=== PATIENT | female | born 1955 | race Caucasian/White ===

== ENCOUNTER → 2016-09-19 | Outpatient (CLI) | payer OTHER ==
--- NOTE | 2016-09-19 14:39 | MM ---
Reason for exam: clinical finding. History: Patient is postmenopausal. Family history of breast cancer in paternal aunt at age 60, breast cancer in paternal cousin at age 53, breast cancer in paternal cousin at age 68, and breast cancer in paternal cousin at age 65. Benign excisional biopsy of the right breast, 1994. Benign excisional biopsy of the left breast. Took estrogen beginning at age 43. Took progesterone beginning at age 43. Physical Findings: Nurse Summary: 1.5cm, 1cm nodule in the left breast at 9:30 and 5 o'clock (nurse dw). MG 3D Diag Mammo W/Cad SERGIO Bilateral CC and MLO view(s) were taken. The breast tissue is heterogeneously dense. This may lower the sensitivity of mammography. No suspicious calcifications are seen. Spiculated mass in the left breast at 8 o'clock, mass is 1cm. These results were verbally communicated with the patient and result sheet given to the patient on 09/19/16. ASSESSMENT: Incomplete: need additional imaging evaluation, BI-RAD 0 RECOMMENDATION: Ultrasound of the left breast.
--- NOTE | 2016-09-19 14:42 | USB ---
Reason for exam: additional evaluation requested from abnormal screening. History: Patient is postmenopausal. Family history of breast cancer in paternal aunt at age 60, breast cancer in paternal cousin at age 53, breast cancer in paternal cousin at age 68, and breast cancer in paternal cousin at age 65. Benign excisional biopsy of the right breast, 1994. Benign excisional biopsy of the left breast. Took estrogen beginning at age 43. Took progesterone beginning at age 43. US Breast Limited LT Left breast ultrasound demonstrates a 0.2 x 0.3 x 0.2cm oval lesion too small to characterize at 5 o'clock and a 1.1 x 1.0 x 0.7cm irregular, solid, hypoechoic lesion at 8 o'clock. These results were verbally communicated with the patient and result sheet given to the patient on 09/19/16. ASSESSMENT: Highly suggestive of malignancy, BI-RAD 5 RECOMMENDATION: Ultrasound core biopsy. Called Dr. Hunter with mammographic findings and has scheduled an appointment for the patient for 10/18/16 at 9:[address] Cox. Biopsy scheduled for 10/12/16. PRELIMINARY REPORT CALLED AND FAXED TO DR. COX ON 09/19/16 AT 300/TP.
== END | disposition home or self-care (01) ==
LOC: RADMAMWWP 12:55
PROVIDERS: ATTEND Family Medicine
DX: N64.59 Other signs and symptoms in breast (principal)
CPT/HCPCS: 76642; G0204; G0279

== ENCOUNTER → 2016-09-21 | Day surgery (SDC) | payer OTHER ==
[~2016-09-21] MED LIST: ALPRAZolam 0.25 MG TAB ONE; BACITRACIN OINT 1 EACH PACKET TOPICAL ONE; LIDOCAINE 1% INJ 10MG/ML (20 ML MDV) ONE; LIDOCAINE 1%-EPI 1:100,000 20 ML VIAL ONE; SODIUM BICARB 4% 5 ML VIAL (0.48 MEQ/ML) ONE
--- NOTE | 2016-09-26 10:21 | USB ---
EXAMINATION TYPE: US biopsy breast VAD LT DATE OF EXAM: 09/21/2016 9:33 AM CLINICAL HISTORY: R92.8 abnormal mammo. TECHNIQUE: Ultrasound guided core biopsy of left breast. COMPARISON: Ultrasound 09/19/2016 FINDINGS: The procedure of ultrasound guided core biopsy was explained to the patient. Benefits, alternatives, and risks were discussed. An informed consent was then obtained. The patient was placed in supine positioning for imaging and for the procedure. The overlying skin was prepped and draped in usual sterile fashion. Lidocaine buffered with bicarbonate was used as anesthetic into the skin and subcutaneous tissue up to area of concern in the left breast. A elisabeth was made with surgical scalpel. On placing the needle there was some continued discomfort, the needle was withdrawn and additional lidocaine was placed. Upon reinsertion patient tolerated procedure well. Under ultrasound guidance, a mammotome 12-gauge vacuum assisted biopsy gun device was used to obtain 5 core samples. Following this, a biopsy clip was left in lesion. The patient tolerated the procedure well without any immediate complication. The patient was kept in the radiology department for short stay after the procedure and then discharged home in stable condition. Post procedure mammogram was ordered. The clip appears to be in appropriate position. IMPRESSION: Successful, uncomplicated ultrasound guided core biopsy of area of concern in the left breast, full pathology results to follow. Pathology Results: Malignant BREAST, LEFT, ULTRASOUND GUIDED CORE BIOPSY: INVASIVE AND IN SITU CARCINOMA; PENDING IMMUNOHISTOCHEMICAL STAINS. 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 Recommendation Surgical consult of the left breast. DAGMAR
--- NOTE | 2016-09-26 10:32 | MM ---
Reason for exam: additional evaluation requested from abnormal screening. Last mammogram was performed less than 1 month ago. History: Patient is postmenopausal. Family history of breast cancer in paternal aunt at age 60, breast cancer in paternal cousin at age 53, breast cancer in paternal cousin at age 68, and breast cancer in paternal cousin at age 65. Benign excisional biopsy of the right breast, 1994. Benign excisional biopsy of the left breast. Took estrogen beginning at age 43. Took progesterone beginning at age 43. MG Diagnostic Mammo LT Wo CAD CC and MLO view(s) were taken of the left breast. Prior study comparison: September 19, 2016, bilateral MG 3d diag mammo w/cad SERGIO. ASSESSMENT: Post procedure mammogram for marker placement RECOMMENDATION: Surgical consultation of the left breast.
== END ==
LOC: RADUSWWP 06:59
PROVIDERS: ATTEND Surgery
DX: C50.912 Malignant neoplasm of unspecified site of left female breast (principal); R92.8 Other abnormal and inconclusive findings on diagnostic imaging of breast; Z80.3 Family history of malignant neoplasm of breast; Z78.0 Asymptomatic menopausal state
CPT/HCPCS: 88305; 88342; 88341; 19083; G0206; J2001

== ENCOUNTER → 2016-10-12 | Day surgery (SDC) | payer OTHER ==
[~2016-10-12] MED LIST changes: -BACITRACIN OINT 1 EACH PACKET TOPICAL ONE; -LIDOCAINE 1% INJ 10MG/ML (20 ML MDV) ONE; -LIDOCAINE 1%-EPI 1:100,000 20 ML VIAL ONE; -SODIUM BICARB 4% 5 ML VIAL (0.48 MEQ/ML) ONE
--- NOTE | 2016-10-12 10:12 | USB ---
EXAMINATION TYPE: US discontinued breast core LT DATE OF EXAM: 10/12/2016 9:03 AM HISTORY: Recently diagnosed left-sided breast carcinoma with additional tiny questionable area of ab normal decreased echogenicity from ultrasound of the left breast dated 09/19/2016. Despite multiple attempts at localizing the area in question the questioned 2 mm lesion could not be identified with confidence. This was discussed with the patient and the ordering physician. Recommend ations include MRI and/or 6 month follow-up ultrasound of the left breast. IMPRESSION: BI-RADS 3 probably benign Recommendation: As discussed with the ordering physician options include MRI as well as 6 month follo w-up ultrasound.
== END ==
LOC: RADUSWWP 07:00
PROVIDERS: ATTEND Surgery
DX: R92.8 Other abnormal and inconclusive findings on diagnostic imaging of breast (principal); Z53.8 Procedure and treatment not carried out for other reasons; Z88.5 Allergy status to narcotic agent; Z88.8 Allergy status to other drugs, medicaments and biological substances; Z91.09 Other allergy status, other than to drugs and biological substances

== ENCOUNTER 2016-10-26 09:16 | Day surgery (SDC) | payer OTHER ==
[2016-10-24 15:26] VITALS: BMI 24.3
[~2016-10-26 09:16] MED LIST changes: -ALPRAZolam 0.25 MG TAB ONE; +HEPARIN SODIUM,PORCINE 5,000 UNIT/ML 1 ML VIAL SQ ONE; +LACTATED RINGERS 1,000 ML IV SCH; +LIDOCAINE 1% 20 ML VIAL (10MG/ML) FOR IV START INTRADERMA PRN; +LIDOCAINE 1% INJ 10MG/ML (20 ML MDV) SQ ONE; +MIDAZOLAM 2 MG/2 ML VIAL IV PRN; +Pre Op ABX Message 1 EACH MISC MISCELLANE ONE; +SCOPOLAMINE 1.5MG/72HR PATCH TRANSDERM ONE; +SODIUM BICARB 4% 5 ML VIAL (0.48 MEQ/ML) MISCELLANE ONE
[2016-10-26] MEDS ORDERED: LACTATED RINGERS 1,000 ML IV ONE ×2 (09:37→13:15)
[2016-10-26] MEDS ORDERED: ALPRAZolam 0.5 MG TAB PO ONE (09:47)
[2016-10-26] MEDS: ONDANSETRON 4 MG/2 ML VIAL IVP ONE ×2 (09:58→16:30)
[2016-10-26] MEDS ORDERED: DEXAMETHASONE SOD PHOS (MDV) 100 MG/10 ML VIAL IVP ONE (09:59)
[2016-10-26] MEDS ORDERED: ONDANSETRON 4 MG/2 ML VIAL ONE (12:28)
[2016-10-26] MEDS ORDERED: SUCCINYLCHOLINE CHLORIDE 100 MG/5 ML SYR IV ONE (12:28)
[2016-10-26] MEDS ORDERED: LIDOCAINE 1% INJ 10MG/ML (20 ML MDV) ONE (12:28)
[2016-10-26] MEDS ORDERED: fentaNYL (PF) 50 MCG/ML 2 ML AMP ONE (12:28)
[2016-10-26] MEDS ORDERED: MIDAZOLAM 2 MG/2 ML VIAL ONE (12:28)
[2016-10-26] MEDS ORDERED: DEXAMETHASONE SOD PHOS (MDV) 100 MG/10 ML VIAL ONE (12:28)
[2016-10-26] MEDS ORDERED: PROPOFOL 10 MG/ML 20 ML VIAL IV ONE (12:28)
[2016-10-26] MEDS ORDERED: SODIUM CHLORIDE 0.9% 50 ML with ceFAZolin 2,000 MG IV ONE ×2 (12:50)
[2016-10-26] MEDS ORDERED: METHYLENE BLUE 50 MG/10 ML AMPUL MISCELLANE ONE (13:07)
[2016-10-26] MEDS ORDERED: BUPIVACAIN-EPI 0.25%-1:200,000 30 ML VIAL SQ ONE ×2 (13:18)
--- NOTE | 2016-10-26 14:37 | NM ---
EXAMINATION TYPE: NM sentinel node injection DATE OF EXAM: 10/26/2016 12:02 PM COMPARISON: NONE HISTORY: 61 year-old female left breast cancer TECHNIQUE AND FINDINGS: The procedure of sentinel lymph node injection was explained to the patient. The benefits, alternatives, and risks were discussed. An informed consent was then obtained. Overlying skin is cleaned with sterile alcohol. Lidocaine buffered with bicarbonate was used as anes thetic into the skin and subcutaneous tissue surrounding the nipple. Following this, 550 uCi Tc 99m Filtered Sulfur Colloid was injected into 4 equivalent doses at 12, 3, 6, and 9:00 position surroundi ng the left nipple intradermally. The injection sites were massaged by chief nuclear medicine technologist for 10 minutes after injection. T he patient tolerated the procedure well without any immediate complication. The patient was kept in the radiology department for short stay after the procedure and then taken to surgery for surgical pr ocedure what is presumed intraoperative gamma probe will be used for sentinel lymph node detection. IMPRESSION: Left breast radiotracer injection for sentinel node localization as above.
--- NOTE | 2016-10-26 14:43 | MM ---
EXAMINATION TYPE: MG pre op needle loc LT, MG surgical specimen LT DATE OF EXAM: 10/26/2016 12:46 PM COMPARISON: Mammogram and ultrasound 09/19/2016 CLINICAL HISTORY: 61-year-old female with biopsy-proven left breast cancer referred for needle localization and excision. TECHNIQUE: Needle localization with wire placement and surgical excision of area of concern in the 9:00 left breast. FINDINGS: The procedure of needle localization with wire placement and than surgical excision was explained to the patient. Benefits, alternatives, and risks were discussed. An informed consent was then obtained. The shortest pathway for procedure was chosen. Shortest pathway was a medial approach. The case was discussed with Dr. Cox prior to the procedure who requests bracketing of the mass to help in ensuring negative margins after excision. The overlying skin was prepped and draped in usual sterile fashion. Lidocaine buffered with bicarbonate was used as anesthetic into the skin and subcutaneous tissue up to the level of area of concern. Two 5 cm Kopans needles were used. Then were placed via a medial approach under mammographic guidance. Subsequent 90 degrees mammogram show the needle to be in satisfactory position relative to the targeted area. At this point, wire was placed and the needles were withdrawn. The wire was fixed to patient's skin. Images were marked for surgeon. The patient tolerated the procedure well without any immediate complication. The patient was kept in the radiology department for short stay after the procedure and then taken to surgery for surgical excision. Targeted mass, biopsy clip, and wire are identified in specimen mammogram. Some of the overlying skin is also included as the surgeon had planned. The patient was kept in hospital for short stay after the procedure and then discharged home in stable condition. IMPRESSION: Successful, uncomplicated needle localization with wire placement and surgical excision of biopsy-proven left breast carcinoma; full pathology results to follow. Pathology Results: Malignant A. SENTINEL NODE #1, BIOPSY: TOW LYMPH NODES NEGATIVE FOR METASTATIC MALIGNANCY. CK7 AND DALE IMMUNOPEROXIDASE STAINS ARE CONFIRMATORY (CONTROLS APPROPRIATE). B. SENTINEL NODE #2, BIOPSY: LYMPH NODE NEGATIVE FOR METASTATIC MALIGNANCY. CK7 AND DALE IMMUNOPEROXIDASE STAINS ARE CONFIRMATORY (CONTROLS APPROPRIATE). C. BREAST, LEFT, LUMPECTOMY: PENDING FIXATION, SEE ADDENDUM/FINAL DIAGNOSIS. ADDENDUM REPORT C. 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 FIBROCYSTIC CHANGE WITH DUCT HYPERPLASIA. Recommendation Surgical consult of the left breast. MTDD
[2016-10-26 15:18] VITALS: TEMP 96.8
[2016-10-26 15:21] VITALS: RESP 16
[2016-10-26] MEDS: HYDROmorphone 1 MG/ML 1 ML SYRINGE IVP PRN ×4 (15:35→15:50)
--- NOTE | 2016-10-26 15:52 | P.OP ---
Date of Procedure: 10/26/16 Preoperative Diagnosis: Left breast cancer DCIS and invasive 9:00 Postoperative Diagnosis: Same Procedure(s) Performed: 1. Lumpectomy with wire localization 2. [place] lymph node biopsy using Methylene blue and radioactive isotope 3. Closure of the resulting defect measuring using local tissue transfer and oncoplastic closure Implants: NA Anesthesia: BECKIA local Surgeon: Angelica Cox Pathology: other Condition: stable Disposition: PACU Description of Procedure: Operative Findings: 1. A wedge resection was performed. 2 wire exited the specimen from the anterior surface (skin) at the superior and inferior border. 2. The gamma probe and blue dye help in identification of sentinel lymph node which was sent for frozen section and were negative for malignancy 3. The sentinel lymph node was negative for malignancy Description of Procedure: The patient underwent wire localization x 2 of left breast mass (bracketing of the lesion) at 9 o'clock position and injection of radioisotope in the radiology department. She was brought to the operating room and placed in supine position with both arms out. 5 mL of methylene blue was injected in the subdermal plane at 4 quadrants around the areola and the breast was massaged for 5 minutes . General anesthesia with endotracheal intubation was performed as per anesthesia team. No muscle relaxants were given. Chlorhexidine was used to prep the left breast and left axilla taking care not to dislodge the wire exiting from the left breast. Sterile drapes were applied. A timeout was performed to verify correct patient and correct procedure. Patient was confirmed to receive perioperative IV antibiotics, heparin 5000 units subcutaneous injection for the VTE prophylaxis and bilateral SCDs were placed. A hand-held gamma probe was used to detect signals overlying the breast.Strong radioisotope signal could be obtained in the axilla. A 3 cm incision was made below the left axillary hairline and dissection was carried out to identify blue node. After entering the clavicopectoral fascia, a blue node was identified. This node was located deep in the axillary bed. The gamma probe was placed in contact with the node and high counts were recorded. The node was excised in its entirety. Additional 1 blue node was also identified and sent as sentinel lymph node for frozen section. [place] lymph nodes were negative for malignancy. The resulting cavity was checked for hemostasis. This was closed in layers using 3-0 Vicryl interrupted sutures and 4-0 Monocryl running subcuticular sutures. A triangular skin incision was made with the base close to the areola and tip extending towards the midline. The lateral margins measured 8 cm. A 4.2 cm cookie cutter was used to parminder the new areola border and additional circumferential marking of 2 cm around it. The skin was de-epithelialized circumferentially around the new areola marking. Superior and inferior incisions were made along the previously marked lines. Excision was carried out using Bovie electrocautery all the way down to the chest wall superiorly and inferiorly. The specimen was then lifted off the chest wall extending medially up to the areola border. A rim of normal breast tissue was included in the excised specimen. The final defect measured 7.3 x6.5 x 3 cm. Surgical clips were placed along the cavity service a marker for radiation therapy The specimen and the localizing wires were removed. Specimen was oriented using colored ink. The specimen was sent to radiology which confirmed that both the wires and clip were within the excised specimen. The cavity was checked for hemostasis. Superior and inferior flaps were raised in the deep subcutaneous plane to close the resulting defect. Local tissue transfer was performed to release the breast tissue from the pectoral muscle and in the subcutaneous plane. This was to approximate the breast tissue and close the resulting cavity measuring 7.3 x6.5 x 3 cm. A KHADIJAH drain was left in the cavity and was brought out through the inferior incision. The cavity was then closed in layers using 3-0 Quill suture . The area border was reapproximated using subcu drain stitches of 3-O stratiffix .Dermabond was applied. Sponge, instrument and needle count were correct 2. Patient tolerated the procedure well and was taken to postanesthesia care unit in stable condition Final Pathologic Diagnosis A. SENTINEL NODE #1, BIOPSY: TWO LYMPH NODES NEGATIVE FOR METASTATIC MALIGNANCY. CK7 AND DALE IMMUNOPEROXIDASE STAINS ARE CONFIRMATORY (CONTROLS APPROPRIATE). B. SENTINEL NODE #2, BIOPSY: LYMPH NODE NEGATIVE FOR METASTATIC MALIGNANCY. CK7 AND DALE IMMUNOPEROXIDASE STAINS ARE CONFIRMATORY (CONTROLS APPROPRIATE). C. 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 FIBROCYSTIC CHANGE WITH DUCT HYPERPLASIA. Comment SURGICAL PATHOLOGY CANCER CASE SUMMARY - INVASIVE CARCINOMA OF THE BREAST Specimen Identification Procedure: Excision with image guided localization. Lymph Node Sampling: [place] lymph nodes. Specimen Laterality: Left. Tumor Size - Estimated Greatest Dimension of Largest Focus of Invasion Greater than 1 mm: 22 mm. Histologic Type of Invasive Carcinoma: Invasive mammary carcinoma of no special type (ductal, not otherwise specified). Histologic Grade: Nehemiah Histologic Score Glandular (Acinar)/Tubular Differentiation: 3. Nuclear Pleomorphism: 3. Mitotic Rate: 2. Overall Grade: Grade of 3 (score of 8). Tumor Focality: Single focus of invasive carcinoma. Ductal Carcinoma In Situ (DCIS) : DCIS is present. Nuclear Grade: 3 (high). Necrosis: Not identified. Lobular Carcinoma In Situ (LCIS): Not identified. Invasive carcinoma: Margins uninvolved by invasive carcinoma. Distance from closest margin: Invasive carcinoma less than a fraction of 1 mm from the green inked margin (inferior) DCIS: Margins uninvolved by DCIS. Distance from closest margin: DCIS wiithin 2 mm from the black inked margin ( superior) and green inked margin (inferior) Lymph Nodes Total number of nodes examined (sentinel and nonsentinel): 3 Number of sentinel nodes examined: 3 Vascular Invasion: Present. Pathologic Staging Primary Tumor: pT2 (tumor greater than 20 mm but less than or equal to 50 mm in greatest dimension. Regional Lymph Nodes: Modified: sn (only sentinel nodes evaluated). Category: pN0 (i-) (no regional lymph node metastasis histologically, negative IHC). Ancillary Studies: The high grade invasive carcinoma in the initial core biopsy ([id number]) was negative for HER2 by IHC and indeterminate for HER2 by FISH. Block C8 is being sent for HER2 studies by FISH and once completed, the results can be found in the Electronic Medical Record under reports as a scanned Pathology Report. Estrogen receptor and progesterone receptor studies were previously performed on [id number]. The results can be found in the Reports section of the Hospital's Electronic Medical Record under Pathology as a scanned Pathology Report. Cytokeratin 5/6 and p63 immunostains are performed and demonstrate reactivity around duct carcinoma insitu confirming the distance of DCIS from the green inked margin
[2016-10-26 17:01] VITALS: PULSE 63
[2016-10-26 17:59] VITALS: BP 138/77
== END 2016-10-26 19:20 | disposition home or self-care (01) ==
LOC: OR 09:16
PROVIDERS: ATTEND Surgery
DX: D05.12 Intraductal carcinoma in situ of left breast (principal); F41.9 Anxiety disorder, unspecified; Z88.5 Allergy status to narcotic agent; Z88.8 Allergy status to other drugs, medicaments and biological substances; Z90.710 Acquired absence of both cervix and uterus; Z79.899 Other long term (current) drug therapy; Z79.82 Long term (current) use of aspirin; Z80.3 Family history of malignant neoplasm of breast; Z80.1 Family history of malignant neoplasm of trachea, bronchus and lung; Z80.0 Family history of malignant neoplasm of digestive organs; Z87.891 Personal history of nicotine dependence; Z78.0 Asymptomatic menopausal state
CPT/HCPCS: 88342; 88331; 88332; 88307; 88341; 76098; 19281; 38792; 19301; 38500; A9541; J2250; J1644; J2405; J2001; J3010; J1170; J0690; J1100; J0330; J2704

== ENCOUNTER → 2017-03-07 | Outpatient (CLI) | payer OTHER ==
--- NOTE | 2017-03-07 15:32 | US ---
EXAMINATION TYPE: US axilla extremity LT DATE OF EXAM: 03/07/2017 COMPARISON: NONE CLINICAL HISTORY: C50.312 Breast CA, N63 Lump. Pt has tender, palpable lump left axilla, pt currently in treatment for breast CA Cystic lesion left axilla in area of pt's palpable= 3.5 x 2.8 x 2.8 cm IMPRESSION: Nonvascular cystic lesion at the site of patient's palpable abnormality.
== END | disposition home or self-care (01) ==
LOC: RADUSWWP 11:46
PROVIDERS: ATTEND Internal Medicine Hematology & Oncology
DX: N60.02 Solitary cyst of left breast (principal); C50.312 Malignant neoplasm of lower-inner quadrant of left female breast

== ENCOUNTER → 2017-05-26 | Outpatient (CLI) | payer OTHER ==
--- NOTE | 2017-05-29 08:03 | BD ---
EXAMINATION TYPE: MG DEXA axial skeleton. DATE OF EXAM: 05/26/2017 COMPARISON: NONE CLINICAL HISTORY: 61-year-old female ICD10 CODE: C50.312 BREAST CA, Z79.890 POST ALEX Height: Weight: FRAX RISK QUESTIONS: Alcohol (3 or more units per day): NO Family History (Parent hip fracture): NO Glucocorticoids (More than 3mos): NO (Ex: prednisone, prednisolone, methylprednisolone, dexamethasone, and hydrocortisone). History of Fracture in Adulthood: NO Secondary Osteoporosis: YES 1. Type 1 Diabetes: NO 2. Hyperthyroidism: NO 3. Menopause before 45: YES 4. Malnutrition: NO 5. Chronic liver disease: NO Rheumatoid Arthritis: NO Current Tobacco Use: NO, QUIT 1982 RISK FACTORS HISTORY OF: History of ELBOW FX When: YOUNG ADULT Family History of Osteoporosis: NO Active: YES Diet low in dairy products/other sources of calcium: A BIT Postmenopausal woman: COMPLETE HYST AT AGE 43 ANASTROZOLE, NO HORMONE...ANTI HORMONE ONLY Hyperparathyroidism: NO Adrenal Insufficiency: NO MEDICATIONS: Additional Medications: HX OF CHEMO AND RADIATION, GABAPENTIN, CALTRATE, VIT E, REFLUX MEDS, XANAX, Additional History: LT BREAST CANCER, 2017, CHEMO AND RADIATION, NEUROPATHY, ANXIETY, MOTRIN, CLAIRTI N EXAM MEASUREMENTS: Bone mineral densitometry was performed using the [employer] System. Bone mineral density as measured about the Lumbar spine is: ----- L1-L4(G/cm2): 0.969 T Score Values are as follows: ----- L1: -1.2 ----- L2: -1.9 ----- L3: -2.0 ----- L4: -2.0 ----- L1-L4: -1.8 Bone mineral density THIS IS HER FIRST BONE DENSITY TEST......BASELINE STUDY Bone mineral density about the R hip (g/cm2): 0.851 Bone mineral density about the L hip (g/cm2): 0.834 T Score values are as follows: -----R Neck: -1.7 -----L Neck: -1.7 -----R Total: -1.2 -----L Total: -1.4 Bone mineral density BASELINE STUDY TODAY. FRAX%'S: THERE IS A 9.3% CHANCE OF A MAJOR OSTEOPOROTIC FX AND A 1.0% OF A HIP FX.....PROBABILITY OF FX IN 10 YRS TIME IMPRESSION: Osteopenia (T Score between -2.5 and -1 as noted by T score values There is slightly increased risk of fracture and the patient may be considered for treatment. Re-Screen 2-5 years. NOTE: T-SCORE=SD OF THE YOUNG ADULT MEAN.
== END | disposition home or self-care (01) ==
LOC: RADBDWWP 12:28
PROVIDERS: ATTEND Internal Medicine Hematology & Oncology
DX: C50.312 Malignant neoplasm of lower-inner quadrant of left female breast (principal); M85.80 Other specified disorders of bone density and structure, unspecified site; Z79.890 Hormone replacement therapy
CPT/HCPCS: 77080

== ENCOUNTER → 2017-09-01 | Outpatient (CLI) | payer OTHER ==
--- NOTE | 2017-09-01 15:38 | XR ---
Left shoulder HISTORY: Breast cancer, pain 2 views of the left shoulder No comparisons Bone mineralization is reduced. Alignment and joint spaces are maintained. Left lung apex as visualiz ed is normal. Acromioclavicular joint arthropathy noted. IMPRESSION: Osteopenia. Osteoarthritis.
== END ==
LOC: RADXRMAIN 12:32
PROVIDERS: ATTEND Internal Medicine Hematology & Oncology
DX: M19.012 Primary osteoarthritis, left shoulder (principal); M85.812 Other specified disorders of bone density and structure, left shoulder; C50.312 Malignant neoplasm of lower-inner quadrant of left female breast; Z17.0 Estrogen receptor positive status [ER+]; Z79.811 Long term (current) use of aromatase inhibitors

== ENCOUNTER → 2017-09-07 | Outpatient (CLI) | payer OTHER ==
--- NOTE | 2017-09-07 12:13 | CT ---
EXAMINATION TYPE: CT cervical spine wo con DATE OF EXAM: 09/07/2017 COMPARISON: NONE HISTORY: Patient complains of left shoulder pain and weakness. CT DLP: 458 mGycm Automated exposure control for dose reduction was used. TECHNIQUE: CT scan of the cervical spine is obtained without contrast, axial images are obtained, sa gittal and coronal reformatted images are also reviewed. FINDINGS: Uncovertebral joint hypertrophy and endplate spurring is present C5-C6. Loss of disc height is presen t at this level. Mild bilateral foraminal narrowing is present. No AP spinal canal stenosis Remaining disc levels appear normal without focal disc herniation significant disc bulges spinal ginette l stenosis or neural foraminal. IMPRESSION: 1. Degenerative disc changes with uncovertebral joint hypertrophy C5-6 and mild bilateral foraminal n arrowing.
== END | disposition home or self-care (01) ==
LOC: RADCTMAIN 11:34
PROVIDERS: ATTEND Internal Medicine Hematology & Oncology
DX: M99.71 Connective tissue and disc stenosis of intervertebral foramina of cervical region (principal); M47.812 Spondylosis without myelopathy or radiculopathy, cervical region
CPT/HCPCS: 72125

== ENCOUNTER → 2017-10-31 | Outpatient (CLI) | payer OTHER ==
--- NOTE | 2017-10-31 14:32 | MM ---
Reason for exam: additional evaluation requested from prior study. Last mammogram was performed 1 year and 1 month ago. History: Patient is postmenopausal and has history of breast cancer at age 61. Family history of breast cancer in paternal aunt at age 60, breast cancer in paternal cousin at age 53, breast cancer in paternal cousin at age 68, and breast cancer in paternal cousin at age 65. Malignant MG pre op needle loc LT of the left breast, October 26, 2016. US discontinued breast core LT of the left breast, October 12, 2016. Malignant US biopsy breast VAD LT of the left breast, September 21, 2016. Lumpectomy of the left breast, 2016. Radiation therapy of the left breast, 2016. Benign excisional biopsy of the right breast, 1994. Benign excisional biopsy of the left breast. Chemotherapy. Took estrogen beginning at age 43. Took progesterone beginning at age 43. Taking antineoplastic for 1 year beginning at age 61. Physical Findings: Nurse Summary: 2cm nodule at 9 o'clock in the left breast, questionable fluid at scar (nurse mj). MG 3D Diag Mammo W/Cad SERGIO Bilateral CC and MLO view(s) were taken. Prior study comparison: September 21, 2016, left breast MG diagnostic mammo LT wo CAD. September 19, 2016, bilateral MG 3d diag mammo w/cad SERGIO. The breast tissue is heterogeneously dense. This may lower the sensitivity of mammography. Finding: Architectural distortion in the lower inner quadrant of the left breast consistent with known lumpectomy. There is no discrete abnormality. These results were verbally communicated with the patient and result sheet given to the patient on 10/31/17. ASSESSMENT: Benign, BI-RAD 2 RECOMMENDATION: Follow-up diagnostic mammogram of both breasts in 1 year.
== END | disposition home or self-care (01) ==
LOC: RADMAMWWP 13:14
PROVIDERS: ATTEND Radiology Radiation Oncology
DX: C50.212 Malignant neoplasm of upper-inner quadrant of left female breast (principal)
CPT/HCPCS: 77066; G0279

== ENCOUNTER → 2018-03-22 | Outpatient (CLI) | payer OTHER ==
[2018-03-22 08:57] VITALS: BP 162/76; PULSE 64; BMI 23.8
--- NOTE | 2018-03-22 09:27 | P.GSHP ---
History of Present Illness H&P Date: 03/22/18 The patient is a 62-year-old white female who is status post left breast lumpectomy and sentinel node biopsy and October 2016. She subsequently underwent radiation therapy and chemotherapy. She is presently on anastrozole. She states at this time she is doing well she says she may have a little puffiness under her left arm but she is not complaining of any pain. After the procedure she did have physical therapy for some limited mobility under visit of the left arm. This has improved. At this time she has no complaints of breast masses. Patient's last bilateral mammogram was October 2017. This was felt to be BIRADS 2 and follow-up of both breast in 1 year recommended. Architectural distortion was noted in the left breast related to the lumpectomy but no discrete abnormalities otherwise noted. The pathologic staging of the disease was a T2 N0M0, ER+, NM+, HER-2 (-) Family history: 1. paternal aunt: breast in her 50's 2. father: lung 3. paternal aunt: colon cancer 4. sister: breast: 58 5. brother: bladder cancer 6. sister: brain cancer Hormonal History: menarche: 13 : 4, 1 miscarriage, 3 children breast fed: no, age at first full term : 26 menopause: 43, MIK no cancer BCP: less than 1 year hormones: 12 years Past Surgical History: 1. left breast 2. appy 3. 3 -c-SECTIONS 4. MIK 4. cyst right breast 5. cyst under her right arm Past Medical History: 1. ? HTN Social History: smoke: stopped 34 years ago Alcohol: Negative Drugs: Negative - Constitutional Constitutional: Reports sweats - EENT Comment: cataracts may need surgery Ears: deny: decreased hearing, tinnitus Ears, nose, mouth and throat: Denies headache, Denies sore throat - Breasts Breasts: bilateral: as per HPI - Respiratory Comment: former smoker Respiratory: Denies cough, Denies 7 - Gastrointestinal Comment: last colonoscopy 2008 Gastrointestinal: Reports diarrhea, Denies abdominal pain, Denies nausea, Denies vomiting - Genitourinary (Female) Genitourinary: Denies dysuria, Denies hematuria - Menstruation Menstruation: Reports post hysterectomy - Musculoskeletal Comment: osteopenia Musculoskeletal: Denies myalgias - Integumentary Integumentary: Denies pruritus, Denies rash - Neurological Neurological: Denies numbness, Denies weakness - Psychiatric Psychiatric: Reports anxiety, Denies depression - Endocrine Endocrine: Denies fatigue, Denies weight change - Hematologic/Lymphatic Comment: none - Allergic/Immunologic Allergic/Immunologic: Reports seasonal allergies Past Medical History Past Medical History: Cancer, GERD/Reflux Additional Past Medical History / Comment(s): Hx anemia at 18 yrs old, hx broken left elbow/no surgery, hx back injury. Current problems with legs cramps at night and poor vision and pre-osteoporosis. Newly diagnosed with left breast cancer. History of Any Multi-Drug Resistant Organisms: None Reported Past Surgical History: Appendectomy, Bladder Surgery, Breast Surgery, Section, Hysterectomy Additional Past Surgical History / Comment(s): Section X3, D&C, Hx Grapefruit sized cyst behind ovary with Appendectomy, Cyst removed right breast , Bladder suspension, cyst removed right axilla, attempted breast biopsy on . Past Anesthesia/Blood Transfusion Reactions: Postoperative Nausea & Vomiting ( PONV) Past Psychological History: Anxiety Smoking Status: Former smoker Past Alcohol Use History: Rare Additional Past Alcohol Use History / Comment(s): Smoked 1-2 PPD for 15 yrs, quit in 1982. Past Drug Use History: None Reported - Past Family History Father Family Medical History: Cancer, COPD, Thyroid Disorder Additional Family Medical History / Comment(s): LUNG CANCER. FATHERS FAMILY- AUNT BREAST & COLON CANCER., UNCLE LEUKEMIA. Sister(s) Additional Family Medical History / Comment(s): BRAIN TUMORS (NON-CANCEROUS) Brother(s) Additional Family Medical History / Comment(s): WEGENERS DISEASE Medications and Allergies Home Medications Medication Instructions Recorded Confirmed Type ALPRAZolam [Xanax] 0.25 mg PO TID PRN 10/24/16 10/24/16 History Acetaminophen Tab [Tylenol Tab] 325 mg PO Q4H PRN 10/24/16 10/24/16 History Aspirin [Adult Low Dose Aspirin EC] 81 mg PO DAILY PRN 10/24/16 10/24/16 History Cholecalciferol [Vitamin D3] 5,000 unit PO DAILY 10/24/16 10/24/16 History Denosumab [Prolia] 120 mg SQ ONCE 03/22/18 03/22/18 History Famotidine [Pepcid] 20 mg PO DAILY 03/22/18 03/22/18 History Vitamin E (Dl,Tocopheryl Acet) 400 unit PO DAILY 03/22/18 03/22/18 History [Vitamin E] Allergies Allergy/AdvReac Type Severity Reaction Status Date / Time Lylgvrd-Bur-Iiy Reductase Allergy Severe MUSCLE Verified 10/24/16 15:09 Inhibitor WEAKNESS adhesive AdvReac Unknown Rash/Hives Verified 10/24/16 15:09 codeine AdvReac Unknown IRRITATED, Verified 10/24/16 15:09 ANGRY magnesium AdvReac Unknown DRY HEAVES Verified 10/24/16 15:09 prednisone AdvReac Unknown THRUSH Verified 10/24/16 15:09 Surgical - Exam Vital Signs Pulse BP Pulse Ox 64 162/76 100 03/22/18 08:51 03/22/18 08:51 03/22/18 08:51 - General well developed, well nourished, no distress - Eyes normal ocular movement, no icteric - ENT no hearing loss, no congestion - Neck no masses, trachea midline - Respiratory normal respiratory effort, clear to auscultation - Cardiovascular Rhythm: regular Heart Sounds: normal: S1, S2 - Abdomen Abdomen: soft, non tender, no guarding, no rigid, no rebound - Neurologic no disoriented, no combative - Musculoskeletal normal gait, normal posture - Psychiatric oriented to time, oriented to person, oriented to place, speech is normal, memory intact Breast examination: Right breast: multi-positional exam no dominant masses or nodules of concern Right axilla: No adenopathy of concern Left breast: Postop changes from prior lumpectomy no dominant masses or nodules of concern on multi-positional exam Left axilla: No adenopathy of concern Results mammogram reviewed Assessment and Plan Assessment: Impression: 1. Left breast cancer T2 N0 M0, ER positive, NM positive, HER-2/spencer negative 2. Status post radiation therapy 3. Status post chemotherapy 4. Patient on anastrozole 5. Family history of cancer as noted 6. Anxiety 7. Hypertension 8. Prior limited mobility of the left arm which has resolved with physical therapy Plan: 1. Medical management of medical problems 2. Continue anastrozole 3. Follow-up in 6 months time for physician exam 4. mammogram in October 2018 Cc: Dr. Olguin
== END | disposition home or self-care (01) ==
LOC: WWCWWP 08:34
PROVIDERS: ATTEND Surgery
DX: Z53.9 Procedure and treatment not carried out, unspecified reason (principal)

== ENCOUNTER → 2018-11-01 | Outpatient (CLI) | payer OTHER ==
--- NOTE | 2018-11-01 10:21 | MM ---
Reason for exam: additional evaluation requested from prior study. Last mammogram was performed 1 year ago. History: Patient is postmenopausal and has history of breast cancer at age 61. Family history of breast cancer in paternal aunt at age 60, breast cancer in paternal cousin at age 53, breast cancer in paternal cousin at age 68, and breast cancer in paternal cousin at age 65. Malignant MG pre op needle loc LT of the left breast, October 26, 2016. US discontinued breast core LT of the left breast, October 12, 2016. Malignant US biopsy breast VAD LT of the left breast, September 21, 2016. Lumpectomy of the left breast, 2016. Radiation therapy of the left breast, 2016. Benign excisional biopsy of the right breast, 1994. Benign excisional biopsy of the left breast. Chemotherapy. Took estrogen beginning at age 43. Took progesterone beginning at age 43. Taking antineoplastic for 1 year beginning at age 61. Physical Findings: Nurse Summary: 1 x 0.5cm nodule in the left breast at o'clock, questionable scar tissue (nurse dw). MG 3D Diag Mammo W/Cad SERGIO Bilateral CC and MLO view(s) were taken. Prior study comparison: October 31, 2017, bilateral MG 3d diag mammo w/cad SERGIO. September 21, 2016, left breast MG diagnostic mammo LT wo CAD. The breast tissue is heterogeneously dense. This may lower the sensitivity of mammography. Finding: Architectural distortion in the lower inner quadrant, middle posterior position of the left breast. There is no discrete abnormality. These results were verbally communicated with the patient and result sheet given to the patient on 11/01/18. ASSESSMENT: Benign, BI-RAD 2 RECOMMENDATION: Follow-up diagnostic mammogram of both breasts in 1 year.
== END | disposition home or self-care (01) ==
LOC: RADMAMWWP 09:19
PROVIDERS: ATTEND Surgery
DX: R92.8 Other abnormal and inconclusive findings on diagnostic imaging of breast (principal)
CPT/HCPCS: 77062; 77066

== ENCOUNTER → 2018-11-08 | Outpatient (CLI) | payer OTHER ==
[2018-11-08 10:30] VITALS: BP 167/73; PULSE 62; RESP 18; TEMP 97.2; BMI 25.2
--- NOTE | 2018-11-08 10:47 | P.PN ---
Subjective Progress Note Date: 11/08/18 Principal diagnosis: Estephania is a 63-year-old white female status post left breast lumpectomy and sentinel node biopsy in October 2016. She subsequently underwent radiation therapy and chemotherapy. She is presently on anastrozole. At this time she has no complaints and states she is doing well. The pathologic staging of her tumor was a T2 N0 M0 ER/IA positive, HER-2 negative tumor. She recently underwent a bilateral diagnostic mammogram on . This was noted to be benign BIRADS 2. Review of systems: HEENT: Wears glasses, possible cataracts Lungs: Negative Heart: Negative GI: Negative : Negative Musculoskeletal: Arthritis in her hands Objective - Vital Signs Vital signs: Vital Signs Temp 97.2 F L 11/08/18 10:26 Pulse 62 11/08/18 10:26 Resp 18 11/08/18 10:26 BP 167/73 11/08/18 10:26 Pulse Ox 97 11/08/18 10:26 Intake & Output 11/07/18 11/08/18 11/08/18 18:59 06:59 18:59 Weight 68.946 kg - Exam BMI 25.3 - Constitutional General appearance: Present: average body habitus - EENT Eyes: Present: EOMI ENT: Present: hearing grossly normal - Neck Neck: Present: normal ROM - Respiratory Respiratory: bilateral: CTA - Cardiovascular Rhythm: regular Heart sounds: normal: S1, S2 - Gastrointestinal General gastrointestinal: Present: soft - Musculoskeletal Musculoskeletal: Present: gait normal - Psychiatric Psychiatric: Present: A&O x's 3, appropriate affect, intact judgment & insight - Additional findings Additional findings: Breast examination: right breast: Multi-positional exam no dominant masses or nodules of concern, fibrocystic changes Right axilla: No adenopathy of concern Left breast: Well-healed scar from prior surgery, the medial aspect of the left breast there is increased nodularity which is most likely scar tissue but is firm and persistent, no other dominant masses or nodules of concern Left axilla: No adenopathy of concern Assessment and Plan Assessment: Impression: 1. Bilateral mammogram 11/01/2018 benign BIRADS 2 2. Patient status post left breast lumpectomy for a T2 N0 M0 ER/IA positive/HER-2 negative breast cancer October 2016 3. Nodularity left breast 4. Family history of breast cancer 5. Family history of cancer 6. Osteopenia 7. Patient on anastrozole 8. Patient status post radiation and chemotherapy Plan: 1. Core biopsy of the nodularity in the left breast in the office 2. Continue anastrozole 3. Continue to follow with medical and radiation oncology 4. Continuous every 6 month follow-ups 5. Repeat bilateral mammogram in 1 year Risks and benefits of core biopsy discussed with the patient. It is felt that the area of nodularity is most likely consistent with scar tissue, however this is very firm and to confirm this we will do a core biopsy. The patient understands and wishes to proceed. Cc: Dr. Boris Olguin
== END ==
LOC: WWCWWP 09:17
PROVIDERS: ATTEND Surgery
DX: Z53.9 Procedure and treatment not carried out, unspecified reason (principal)

== ENCOUNTER → 2018-12-13 | Outpatient (CLI) | payer OTHER ==
[2018-12-13 09:00] VITALS: BP 169/75; PULSE 65; RESP 16; TEMP 97.9; BMI 25.2
--- NOTE | 2018-12-13 09:58 | P.OP ---
Date of Procedure: 12/13/18 Preoperative Diagnosis: Nodularity left breast Postoperative Diagnosis: Same Procedure(s) Performed: Left breast core biopsy Anesthesia: local Surgeon: Yoly Ross Estimated Blood Loss (ml): 0 Pathology: other (3 samples from for biopsy of the area of concern) Condition: stable Disposition: same day Indications for Procedure: Estephania is a 63-year-old white female status post left breast lumpectomy for a T2 N0 M0 ER/MS positive HER-2/spencer negative tumor in October 2016. On visit of [id number] she was noted to have increased nodularity in the medial aspect of the lumpectomy site. A biopsy of this area was recommended. Operative Findings: Dense breast tissue Description of Procedure: The patient was brought to the procedure room. The area of concern in the left breast was prepped using Betadine. 1% lidocaine was used to anesthetize the area of concern. A 18-gauge 10 cm core biopsy needle was used to obtain a specimen. The specimens were obtained from the area of concern. After the area had been anesthetized a small neck was made in the skin the biopsy needle was introduced and 2 specimens were obtained. Following this a second site was utilized to place the needle and another biopsy specimen was obtained. The tissue was sent to pathology for evaluation. The patient tolerated procedure in stable condition. The patient will follow next week for results of the biopsy. Cc: Dr. Olguin
== END ==
LOC: WWCWWP 08:49
PROVIDERS: ATTEND Surgery
DX: N63.20 Unspecified lump in the left breast, unspecified quadrant (principal)
CPT/HCPCS: 88305

== ENCOUNTER → 2018-12-26 | Day surgery (SDC) | payer OTHER ==
[2018-12-20 12:43] VITALS: BMI 25.2
[~2018-12-26] MED LIST changes: -HEPARIN SODIUM,PORCINE 5,000 UNIT/ML 1 ML VIAL SQ ONE; -LIDOCAINE 1% INJ 10MG/ML (20 ML MDV) SQ ONE; -MIDAZOLAM 2 MG/2 ML VIAL IV PRN; +ONDANSETRON 4 MG/2 ML VIAL IVP ONE; +PROPOFOL 10 MG/ML 20 ML VIAL IV ONE; -Pre Op ABX Message 1 EACH MISC MISCELLANE ONE; -SCOPOLAMINE 1.5MG/72HR PATCH TRANSDERM ONE; -SODIUM BICARB 4% 5 ML VIAL (0.48 MEQ/ML) MISCELLANE ONE
[2018-12-26 09:39] VITALS: TEMP 97.8
--- NOTE | 2018-12-26 10:22 | P.GSHP ---
History of Present Illness H&P Date: 12/26/18 Chief Complaint: Colon cancer screening Patient here today for colonoscopy. Last colonoscopy 10 years ago. No bowel complaints. No family history of colon cancer. Past Medical History Past Medical History: Cancer, GERD/Reflux Additional Past Medical History / Comment(s): anemia at 18 yrs old, hx broken left elbow/no surgery, hx back injury. , legs cramps at night ., osteopenia., left breast cancer (September 2016 with surgery, chemo & radiation), cataracts. History of Any Multi-Drug Resistant Organisms: None Reported Past Surgical History: Appendectomy, Bladder Surgery, Breast Surgery, Section, Hysterectomy Additional Past Surgical History / Comment(s): Section X3, D&C, Hx Grapefruit sized cyst behind ovary with Appendectomy, Cyst removed right breast, Bladder suspension, cyst removed right axilla, breast biopsy . Past Anesthesia/Blood Transfusion Reactions: Motion Sickness, Postoperative Nausea & Vomiting (PONV) Past Psychological History: Anxiety Smoking Status: Former smoker Past Alcohol Use History: None Reported Additional Past Alcohol Use History / Comment(s): Smoked 1-2 PPD for 15 yrs, quit in 1982. Past Drug Use History: None Reported - Past Family History Father Family Medical History: Cancer, COPD, Thyroid Disorder Additional Family Medical History / Comment(s): LUNG CANCER. FATHERS FAMILY- AUNT BREAST & COLON CANCER., UNCLE LEUKEMIA. Sister(s) Additional Family Medical History / Comment(s): BRAIN TUMORS (NON-CANCEROUS) Brother(s) Additional Family Medical History / Comment(s): WEGENERS DISEASE Medications and Allergies Home Medications Medication Instructions Recorded Confirmed Type ALPRAZolam [Xanax] 0.25 mg PO TID PRN 10/24/16 12/26/18 History Acetaminophen Tab [Tylenol Tab] 325 mg PO Q4-6H PRN 10/24/16 12/26/18 History Anastrozole [Arimidex] 1 mg PO DAILY 12/13/18 12/26/18 History Calcium Carb/Vitamin D3/Vit K1 1 each PO DAILY 12/20/18 12/26/18 History [Citracal Soft Chew] Cholecalciferol (Vitamin D3) 1,000 unit PO DAILY 12/20/18 12/26/18 History [Vitamin D3] Prolia (Unknown Dose) 1 dose SQ DIRECTED 12/20/18 12/26/18 History Allergies Allergy/AdvReac Type Severity Reaction Status Date / Time Drtgdos-Mwj-Atr Reductase Allergy Severe MUSCLE Verified 12/26/18 09:23 Inhibitor WEAKNESS adhesive AdvReac Unknown Rash/Hives Verified 12/26/18 09:23 codeine AdvReac Unknown IRRITATED, Verified 12/26/18 09:23 ANGRY magnesium AdvReac Unknown DRY HEAVES Verified 12/26/18 09:23 prednisone AdvReac Unknown THRUSH Verified 12/26/18 09:23 aspartame AdvReac Diarrhea Verified 12/26/18 09:23 Surgical - Exam Vital Signs Temp Pulse Resp BP Pulse Ox 97.8 F 73 15 158/71 97 12/26/18 09:34 12/26/18 09:34 12/26/18 09:34 12/26/18 09:34 12/26/18 09:34 Physical exam: General: Well-developed, well-nourished HEENT: Normocephalic, sclerae nonicteric Abdomen: Nontender, nondistended Extremities: No edema Neuro: Alert and oriented Assessment and Plan (1) Colon cancer screening Narrative/Plan: Will proceed with colonoscopy. Current Visit: Yes Status: Acute Code(s): Z12.11 - ENCOUNTER FOR SCREENING FOR MALIGNANT NEOPLASM OF COLON SNOMED Code(s): 482517354
--- NOTE | 2018-12-26 10:35 | P.PCN ---
Date of Procedure: 12/26/18 Procedure(s) Performed: PREOPERATIVE DIAGNOSIS: Colon cancer screening POSTOPERATIVE DIAGNOSIS: Normal exam PROCEDURE: Colonoscopy ANESTHESIA: MAC SURGEON: Lionel Duarte M.D. SPECIMENS: None ENDOSCOPIC PROCEDURE: The patient was placed on the endoscopy table in the left decubitus position. The Olympus colonoscope was inserted into the anus and passed under direct visualization to the base of the cecum. The appendiceal orifice was visualized. From that point the scope was slowly withdrawn inspecti ng all surfaces carefully. There were no neoplastic inflammatory or polypoid lesions throughout the cecum, ascending, transverse, descending, sigmoid and rectum. There was no visible diverticulosis noted. Digital rectal examination was normal. The patient was taken to the recovery room in stable condition per anesthesia guidelines. RECOMMENDATIONS: Increase fiber. Follow-up colonoscopy in 10 years.
[2018-12-26 11:05] VITALS: BP 111/61; PULSE 55; RESP 16
== END ==
LOC: ORWHC2ENDO 09:05
PROVIDERS: ATTEND Surgery
DX: Z12.11 Encounter for screening for malignant neoplasm of colon (principal); K21.9 Gastro-esophageal reflux disease without esophagitis; M85.80 Other specified disorders of bone density and structure, unspecified site; Z85.3 Personal history of malignant neoplasm of breast; Z92.21 Personal history of antineoplastic chemotherapy; Z92.3 Personal history of irradiation; Z87.891 Personal history of nicotine dependence; H26.9 Unspecified cataract; Z90.710 Acquired absence of both cervix and uterus; Z79.811 Long term (current) use of aromatase inhibitors; Z79.899 Other long term (current) drug therapy; Z88.5 Allergy status to narcotic agent; Z88.8 Allergy status to other drugs, medicaments and biological substances; Z91.09 Other allergy status, other than to drugs and biological substances; Z80.1 Family history of malignant neoplasm of trachea, bronchus and lung; Z80.0 Family history of malignant neoplasm of digestive organs; Z80.6 Family history of leukemia; Z80.3 Family history of malignant neoplasm of breast
CPT/HCPCS: J2405; J2704; G0121

== ENCOUNTER → 2019-07-05 | Outpatient (CLI) | payer OTHER ==
[2019-07-05 15:21] VITALS: BP 158/90; PULSE 83; RESP 16; TEMP 97.8
--- NOTE | 2019-07-05 15:37 | P.PN ---
Subjective Progress Note Date: 07/05/19 Principal diagnosis: left breast stage [id number]+Her2- Estephania is a 63-year-old white female status post left breast lumpectomy and sentinel node biopsy in October 2016. She subsequently underwent radiation therapy and chemotherapy. She is presently on anastrozole. At this time she has no complaints and states she is doing well. The pathologic staging of her tumor was a T2 N0 M0 ER/KS positive, HER-2 negative G3 stage IIA tumor. She recently underwent a bilateral diagnostic mammogram on . This was noted to be benign BIRADS 2. Core biopsy of an area of fullness was done in November 2018 which was benign. She is here for 6 month follow-up. He has no masses or lumps in her breasts. No nipple discharge or skin changes of concern. She is not complaining of any pain in her breast. Family history: brother: bladder cancer sister: brain tumors (not cancer) brother: blood cancer sister: breast cancer father: lung cancer paternal aunt: breast cancer paternal aunt: colon cancer Hormonal History: menarche: 13 , 1 at , 1 [place] men[place]: 43; complete hysterectomy no cancer BCP: <1 year hormones: 12 years Surgical History: 3 C-sections Right breast lump removed on cancer Cyst removed from ovaries Appendectomy Total abdominal hysterectomy Lumpectomy sentinel node biopsy left breast Medical History: none Social History: smoke: none, stopped 30 years ago alcohol: none drugs: none Review of systems: HEENT: Wears glasses, possible cataracts Lungs: Negative Heart: Negative GI: Negative : Negative Musculoskeletal: Arthritis in her hands endocrine: none hematologic: none neuro: none allergies: as noted Integument: none Objective - Vital Signs Vital signs: Intake & Output 07/04/19 07/05/19 07/05/19 18:59 06:59 18:59 Weight 68.946 kg - Constitutional General appearance: Present: average body habitus - EENT Eyes: Present: EOMI ENT: Present: hearing grossly normal - Respiratory Respiratory: bilateral: CTA - Cardiovascular Rhythm: regular Heart sounds: normal: S1, S2 - Gastrointestinal General gastrointestinal: Present: normal bowel sounds, soft - Integumentary Integumentary: Present: normal turgor - Musculoskeletal Musculoskeletal: Present: gait normal - Psychiatric Psychiatric: Present: A&O x's 3, appropriate affect, intact judgment & insight - Additional findings Additional findings: breast exam: Breasts: Multiple positional exam no dominant masses or nodules of concern Right axilla: No adenopathy of concern Left breast: Well-healed scar from prior lumpectomy, there remains some fullness in the medial aspect of the scar near the sternum which area had been biopsied by core biopsy did not show anything of concern this has not changed as per the patient Left axilla: No adenopathy of concern Assessment and Plan Assessment: Impression: 1. Stage IIA breast cancer treated with lumpectomy, radiation therapy, chemotherapy, and anastrozole patient with no evidence of any recurrent cancer at this time 2. Fullness in the medial aspect of the left breast near near incision believed to be scar tissue following this clinically 3. Patient due for bilateral mammogram in October 4. Follow-up after bilateral mammogram 5. Family history of cancer Plan: 1. Bilateral mammogram in October with physician exam at that time 2. Follow up sooner if any areas of concern noted in the breast CC: Dr. Hunter encounter 25 minutes, > 50% of time spent in planning and counselling Time with Patient: Less than 30
== END ==
LOC: WWCWWP 15:07
PROVIDERS: ATTEND Surgery
DX: Z53.9 Procedure and treatment not carried out, unspecified reason (principal)

== ENCOUNTER → 2020-01-09 | Outpatient (CLI) | payer OTHER ==
--- NOTE | 2020-01-09 13:44 | MM ---
Reason for exam: additional evaluation requested from prior study. Last mammogram was performed 1 year and 2 months ago. History: Patient is postmenopausal and has history of breast cancer at age 61. Family history of breast cancer in sister at age 56, breast cancer in paternal aunt at age 60, breast cancer in paternal cousin at age 53, breast cancer in paternal cousin at age 68, and breast cancer in paternal cousin at age 65. Benign excisional biopsy of the left breast, November 2018. Malignant MG pre op needle loc LT of the left breast, October 26, 2016. US discontinued breast core LT of the left breast, October 12, 2016. Malignant US biopsy breast VAD LT of the left breast, September 21, 2016. Lumpectomy of the left breast, 2016. Radiation therapy of the left breast, 2016. Benign excisional biopsy of the right breast, 1994. Benign excisional biopsy of the left breast. 2 chemotherapies. Took estrogen beginning at age 43. Took progesterone beginning at age 43. Taking antineoplastic for 3 years beginning at age 61. Physical Findings: Nurse did not find any significant physical abnormalities on exam. MG 3D Diag Mammo W/Cad SERGIO Bilateral CC and MLO view(s) were taken. Prior study comparison: November 01, 2018, bilateral MG 3d diag mammo w/cad SERGIO. October 31, 2017, bilateral MG 3d diag mammo w/cad SERGIO. The breast tissue is heterogeneously dense. This may lower the sensitivity of mammography. Post surgical changes left breast. No significant new findings when compared with previous films. These results were verbally communicated with the patient and result sheet given to the patient on 01/09/20. ASSESSMENT: Benign, BI-RAD 2 RECOMMENDATION: Follow-up diagnostic mammogram of both breasts in 1 year.
== END | disposition home or self-care (01) ==
LOC: RADMAMWWP 12:47
PROVIDERS: ATTEND Surgery
DX: Z08 Encounter for follow-up examination after completed treatment for malignant neoplasm (principal); Z85.3 Personal history of malignant neoplasm of breast
CPT/HCPCS: 77062; 77066

== ENCOUNTER → 2020-02-25 | Outpatient (CLI) | payer OTHER ==
--- NOTE | 2020-02-25 14:04 | BD ---
EXAMINATION TYPE: Axial Bone Density DATE OF EXAM: 02/25/2020 COMPARISON: NONE CLINICAL HISTORY: Postmenopausal female Height: 5 FT 5 IN Weight: 145 FRAX RISK QUESTIONS: Alcohol (3 or more units per day): NO Family History (Parent hip fracture): NO Glucocorticoids (More than 3mos): NO (Ex: prednisone, prednisolone, methylprednisolone, dexamethasone, and hydrocortisone). History of Fracture in Adulthood: YES Secondary Osteoporosis: 1. Type 1 Diabetes: NO 2. Hyperthyroidism: NO 3. Menopause before 45: YES 4. Malnutrition: NO 5. Chronic liver disease: NO Rheumatoid Arthritis: NO Current Tobacco Use: NO RISK FACTORS HISTORY OF: Family History of Osteoporosis: YES Active: YES Postmenopausal woman: TOTAL HYST AGE 43 Take estrogen and/or progesterone medications: TOOK HRT 12 YEARS NO LONGER MEDICATIONS: Osteoporosis Medications: YES Which medication: PROLIA How Long: SINCE 2018 Additional Medications: ANASTROZOLE, PROLIA , Additional History: BREAST CANCER CHEMO AND RADIATION 2017 EXAM MEASUREMENTS: Bone mineral densitometry was performed using the [employer] System. Bone mineral density as measured about the Lumbar spine is: ----- L1-L4(G/cm2): 1.071 T Score Values are as follows: ----- L2: -0.7 ----- L3: -1.4 ----- L4: -0.7 ----- L1-L4: -0.9 Bone mineral density has: INCREASED 11.9 % since study of: 2016 Bone mineral density about the R hip (g/cm2): 0.848 Bone mineral density about the L hip (g/cm2): 0.813 T Score values are as follows: -----R Neck: -1.4 -----L Neck: -1.6 -----R Total: -0.7 -----L Total: -1.1 Bone mineral density has: INCREASED 6.2 % since study of: 2017 IMPRESSION: Osteopenia (T Score between -2.5 and -1). There is slightly increased risk of fracture and the patient may be considered for treatment. Re-Screen 2-5 years. NOTE: T-SCORE=SD OF THE YOUNG ADULT MEAN.
== END | disposition home or self-care (01) ==
LOC: RADBDWWP 09:45
PROVIDERS: ATTEND Internal Medicine Hematology & Oncology
DX: C50.312 Malignant neoplasm of lower-inner quadrant of left female breast (principal); M85.80 Other specified disorders of bone density and structure, unspecified site; Z88.5 Allergy status to narcotic agent; Z88.8 Allergy status to other drugs, medicaments and biological substances
CPT/HCPCS: 77080

== ENCOUNTER → 2020-08-13 | Outpatient (CLI) | payer OTHER ==
[2020-08-13 09:40] VITALS: BP 160/78; PULSE 71; RESP 18; TEMP 98
--- NOTE | 2020-08-13 10:10 | P.PN ---
Subjective Progress Note Date: 08/13/20 Principal diagnosis: stage IIA left breast cancer Stage IIA left breast cancer Estephania is a 64-year-old white female status post left breast lumpectomy and sentinel node biopsy in October 2016. She subsequently underwent radiation therapy and chemotherapy. She is presently on anastrozole. At this time she has no complaints and states she is doing well. The pathologic staging of her tumor was a T2 N0 M0 ER/KY positive, HER-2 negative G3 stage IIA tumor. She underwent a bilateral diagnostic mammogram on 01-09-20. This was noted to be benign BIRADS 2. She has no masses or lumps in her breasts. No nipple discharge or skin changes of concern. She is not complaining of any pain in her breast. She has noted some swelling of the distal aspect of her 5th digit on the left hand, she has not seen anyone for this and it has improved at this time. The patient did have a bone density performed 61012 this was consistent with osteopenia. She is being followed by Dr. Weston for this and takes calcium and vitamin D Family history: brother: bladder cancer sister: brain tumors (not cancer) brother: blood cancer sister: breast cancer father: lung cancer paternal aunt: breast cancer paternal aunt: colon cancer The patient did have a bone density performed an 19707 she had a score of Hormonal History: menarche: 13 , 1 at , 1 [place] menopasue: 43; complete hysterectomy no cancer BCP: <1 year hormones: 12 years Surgical History: 3 C-sections Right breast lump removed on cancer Cyst removed from ovaries Appendectomy Total abdominal hysterectomy Lumpectomy sentinel node biopsy left breast colonoscopy December 2018/ all [place] Medical History: none Social History: smoke: none, stopped 30 years ago alcohol: none drugs: none Review of systems: HEENT: Wears glasses, possible cataracts Lungs: Negative Heart: Negative GI: Negative : Negative Musculoskeletal: Arthritis in her hands endocrine: none hematologic: none neuro: none allergies: as noted Integument: small nodule left 5th digit distal, it does not itch or hurt Objective - Vital Signs Vital signs: Vital Signs Temp 98.0 F 08/13/20 09:38 Pulse 71 08/13/20 09:38 Resp 18 08/13/20 09:38 BP 160/78 01/28/21 09:38 Pulse Ox 98 08/13/20 09:38 Intake & Output 08/12/20 08/13/20 08/13/20 18:59 06:59 18:59 Weight 68.946 kg - Exam BMI 24.6 - Constitutional General appearance: Present: average body habitus - EENT Eyes: Present: EOMI ENT: Present: hearing grossly normal - Neck Neck: Present: normal ROM - Respiratory Respiratory: bilateral: CTA - Cardiovascular Rhythm: regular Heart sounds: normal: S1, S2 - Gastrointestinal General gastrointestinal: Present: normal bowel sounds, soft - Integumentary Integumentary: Present: normal turgor - Musculoskeletal Musculoskeletal: Present: gait normal - Psychiatric Psychiatric: Present: A&O x's 3, appropriate affect - Additional findings Additional findings: breast exam: BRA: 38C inspection: Grade 2/3 ptosis bilateral, right breast larger than left breast, well-healed scar from prior lumpectomy Palpation: Right breast: Multiple positional exam fibrocystic changes no dominant masses or nodules of concern Right axilla: No adenopathy of concern Left breast: Multiple positional exam fibrocystic changes, no dominant masses or nodules of concern Left axilla: No adenopathy of concern Assessment and Plan Assessment: Impression: Stage II a left breast cancer diagnosed 2016, patient status post lumpectomy and sentinel node biopsy Patient status post radiation therapy Patient status post chemotherapy Patient presently on anastrozole Bone density consistent with osteopenia patient takes oral calcium and vitamin D and follows with medical oncology Discomfort left fifth digit distal area would recommend following with primary care doctor Plan: 1. Continue present anastrozole 2. Follow-up here in December with bilateral mammogram 3. Follow up sooner if any questions or concerns 4. Continue following with medical and radiation oncology Cc: Dr. Hunter encounter 15 minutes, spent in reviewing medical information, examination, and counselling.
== END | disposition home or self-care (01) ==
LOC: WWCWWP 09:28
PROVIDERS: ATTEND Surgery
DX: Z53.9 Procedure and treatment not carried out, unspecified reason (principal)

== ENCOUNTER → 2021-01-12 | Outpatient (CLI) | payer MEDICARE ==
--- NOTE | 2021-01-12 11:31 | MM ---
Reason for exam: additional evaluation requested from prior study. Last mammogram was performed 1 year ago. History: Patient is postmenopausal and has history of breast cancer at age 61. Family history of breast cancer in sister at age 56, breast cancer in paternal aunt at age 60, breast cancer in paternal cousin at age 53, breast cancer in paternal cousin at age 68, and breast cancer in paternal cousin at age 65. Benign excisional biopsy of the left breast, November 2018. Malignant MG pre op needle loc LT of the left breast, October 26, 2016. US discontinued breast core LT of the left breast, October 12, 2016. Malignant US biopsy breast VAD LT of the left breast, September 21, 2016. Lumpectomy of the left breast, 2016. Radiation therapy of the left breast, 2016. Benign excisional biopsy of the right breast, 1994. Benign excisional biopsy of the left breast. 2 chemotherapies. Took estrogen beginning at age 43. Took progesterone beginning at age 43. Taking antineoplastic for 4 years beginning at age 61. Physical Findings: Nurse did not find any significant physical abnormalities on exam. MG 3D Diag Mammo W/Cad SERGIO Bilateral CC and MLO view(s) were taken. CCRM and spot compression ML view(s) were taken of the right breast. Prior study comparison: January 09, 2020, bilateral MG 3d diag mammo w/cad SERGIO. November 01, 2018, bilateral MG 3d diag mammo w/cad SERGIO. The breast tissue is heterogeneously dense. This may lower the sensitivity of mammography. Right 1.5cm nodule at 10 o'clock 7.5cm from nipple, more prominent. Ultrasound to follow focal right breast. Left post surgical change stable. These results were verbally communicated with the patient and result sheet given to the patient on 01/12/21. ASSESSMENT: Incomplete: need additional imaging evaluation, BI-RAD 0 RECOMMENDATION: Ultrasound of the right breast.
--- NOTE | 2021-01-12 11:33 | USB ---
Reason for exam: additional evaluation requested from abnormal screening. History: Patient is postmenopausal and has history of breast cancer at age 61. Family history of breast cancer in sister at age 56, breast cancer in paternal aunt at age 60, breast cancer in paternal cousin at age 53, breast cancer in paternal cousin at age 68, and breast cancer in paternal cousin at age 65. Benign excisional biopsy of the left breast, November 2018. Malignant MG pre op needle loc LT of the left breast, October 26, 2016. US discontinued breast core LT of the left breast, October 12, 2016. Malignant US biopsy breast VAD LT of the left breast, September 21, 2016. Lumpectomy of the left breast, 2016. Radiation therapy of the left breast, 2016. Benign excisional biopsy of the right breast, 1994. Benign excisional biopsy of the left breast. 2 chemotherapies. Took estrogen beginning at age 43. Took progesterone beginning at age 43. Taking antineoplastic for 4 years beginning at age 61. US Breast Limited RT Right limited breast ultrasound including focal area of concern, retroareolar and axilla demonstrates at 10 o'clock there is dense tissue. No sonographic evidence of cyst or mass. Probably benign. Recommend 6 month follow up right diagnostic mammogram and ultrasound if needed. These results were verbally communicated with the patient and result sheet given to the patient on 01/12/21. ASSESSMENT: Probably benign, BI-RAD 3 RECOMMENDATION: Ultrasound of the right breast in 6 months.
== END | disposition home or self-care (01) ==
LOC: RADMAMWWP 08:50
PROVIDERS: ATTEND Surgery
DX: N63.11 Unspecified lump in the right breast, upper outer quadrant (principal); R92.2 Inconclusive mammogram; Z78.0 Asymptomatic menopausal state; Z85.3 Personal history of malignant neoplasm of breast; Z80.3 Family history of malignant neoplasm of breast
CPT/HCPCS: 77066; 76642; G0279; 77062

== ENCOUNTER → 2021-01-21 | Outpatient (CLI) | payer MEDICARE, OTHER ==
[2021-01-21 09:47] VITALS: BP 161/80; PULSE 77; RESP 18; TEMP 98.2
--- NOTE | 2021-01-21 10:06 | P.PN ---
Subjective Progress Note Date: 01/21/21 Principal diagnosis: stage IIA left breast cancer Stage IIA left breast cancer Estephania is a 65-year-old white female status post left breast lumpectomy and sentinel node biopsy in October 2016. She subsequently underwent chemotherapy TC followed by radiation therapy which she finished on 05-02-2017.. She is presently on anastrozole. At this time she has no complaints and states she is doing well. The pathologic staging of her tumor was a T2 N0 M0 ER/NH positive, HER-2 negative G3 stage IIA tumor. She underwent a bilateral diagnostic mammogram on , after which an ultrasound of the right breast was recommended. The ultrasound was performed on the same date and this was felt to be benign BIRADS 3 and repeat right breast ultrasound in 6 months time was recommended. She has no masses or lumps in her breasts. No nipple discharge or skin changes of concern. She is not complaining of any pain in her breast. She has noted some swelling of the distal aspect of her 5th digit on the left hand, she has not seen anyone for this and it has improved at this time. She is not painful. It has not changed. The patient did have a bone density performed 06393 this was consistent with osteopenia. She is being followed by Dr. Weston for this and takes Prolia, and calcium and vitamin D No from Dr. Gonzalez on was reviewed. Family history: brother: bladder cancer sister: brain tumors (not cancer) brother: blood cancer sister: breast cancer father: lung cancer paternal aunt: breast cancer paternal aunt: colon cancer [place] [address] she had a score of Hormonal History: menarche: 13 , 1 at , 1 miscarriage menopause: 43; complete hysterectomy no cancer BCP: <1 year hormones: 12 years Surgical History: 3 C-sections Right breast lump removed on cancer Cyst removed from ovaries Appendectomy Total abdominal hysterectomy Lumpectomy sentinel node biopsy left breast colonoscopy December 2018/ all [place] Medical History: none Social History: smoke: none, stopped 30 years ago alcohol: none drugs: none Review of systems: HEENT: Wears glasses, possible cataracts Lungs: Negative Heart: Negative GI: Negative : Negative Musculoskeletal: Arthritis in her hands endocrine: none hematologic: none neuro: none allergies: as noted Integument: small nodule left 5th digit distal, it does not itch or hurt Objective - Vital Signs Vital signs: Vital Signs Temp 98.2 F 01/21/21 09:42 Pulse 77 01/21/21 09:42 Resp 18 01/21/21 09:42 BP 161/80 01/21/21 09:42 Pulse Ox 99 01/21/21 09:42 Intake & Output 01/20/21 01/21/21 01/21/21 18:59 06:59 18:59 Weight 67.132 kg - Exam BMI 24.6 - Constitutional General appearance: Present: average body habitus - EENT Eyes: Present: EOMI ENT: Present: hearing grossly normal - Neck Neck: Present: normal ROM - Respiratory Respiratory: bilateral: CTA - Cardiovascular Rhythm: regular Heart sounds: normal: S1, S2 - Gastrointestinal General gastrointestinal: Present: soft - Integumentary Integumentary: Present: normal turgor - Musculoskeletal Musculoskeletal: Present: gait normal - Psychiatric Psychiatric: Present: A&O x's 3, appropriate affect, intact judgment & insight - Additional findings Additional findings: Breast exam: BRA: 38C inspection: Bilateral grade 3 ptosis, well-healed scar left breast Palpation: Right breast: Multiple positional exam fibrocystic changes no dominant masses or nodules of concern Right axilla: No adenopathy of concern Left breast: Multi-positional exam fibrocystic changes, well-healed scar no dominant masses or nodules of concern Left axilla: No adenopathy of concern Assessment and Plan Assessment: Impression: 1. Patient status post left breast lumpectomy/chemotherapy/radiation therapy no evidence of recurrent cancer 2. Recent bilateral mammogram and right breast ultrasound recommended repeat right breast ultrasound in 6 months 3. Fibrocystic breast changes Plan: 1. Continue aromatase inhibitor 2. Continue to follow for osteopenia with Dr. Osei 3. Repeat right breast mammogram and ultrasound 6 months with physician exam at that time CC: Dr. Hunter
== END ==
LOC: WWCWWP 09:32
PROVIDERS: ATTEND Surgery
DX: N60.12 Diffuse cystic mastopathy of left breast (principal); N60.11 Diffuse cystic mastopathy of right breast; Z85.3 Personal history of malignant neoplasm of breast; Z92.21 Personal history of antineoplastic chemotherapy; Z92.3 Personal history of irradiation; Z98.890 Other specified postprocedural states; Z87.891 Personal history of nicotine dependence; Z88.8 Allergy status to other drugs, medicaments and biological substances; Z91.048 Other nonmedicinal substance allergy status; Z88.5 Allergy status to narcotic agent; Z91.02 Food additives allergy status

== ENCOUNTER → 2021-07-22 | Outpatient (CLI) | payer MEDICARE ==
--- NOTE | 2021-07-26 09:59 | MM ---
Reason for exam: follow-up at short interval from prior study. Last mammogram was performed 6 months ago. History: Patient is postmenopausal and has history of breast cancer at age 61. Family history of breast cancer in sister at age 56, breast cancer in paternal aunt at age 60, breast cancer in paternal cousin at age 53, breast cancer in paternal cousin at age 68, and breast cancer in paternal cousin at age 65. Benign excisional biopsy of the left breast, November 2018. Malignant MG pre op needle loc LT of the left breast, October 26, 2016. US discontinued breast core LT of the left breast, October 12, 2016. Malignant US biopsy breast VAD LT of the left breast, September 21, 2016. Lumpectomy of the left breast, 2016. Radiation therapy of the left breast, 2016. Benign excisional biopsy of the right breast, 1994. Benign excisional biopsy of the left breast. 3 chemotherapies. Radiation therapy of the left breast. Took estrogen beginning at age 43. Took progesterone beginning at age 43. Taking antineoplastic for 4 years beginning at age 61. Physical Findings: Nurse did not find any significant physical abnormalities on exam. MG 3D Diag Mammo W/Cad RT CC, MLO, and XCCL view(s) were taken of the right breast. Prior study comparison: January 12, 2021, bilateral MG 3d diag mammo w/cad SERGIO. January 09, 2020, bilateral MG 3d diag mammo w/cad SERGIO. The breast tissue is heterogeneously dense. This may lower the sensitivity of mammography. The superior asymmetric density has becomes less defined. No significant new findings when compared with previous films. These results were verbally communicated with the patient and result sheet given to the patient on 07/22/21. ASSESSMENT: Incomplete: need additional imaging evaluation, BI-RAD 0 RECOMMENDATION: Ultrasound of the right breast. 10 o'clock
--- NOTE | 2021-07-26 10:00 | USB ---
Reason for exam: additional evaluation requested from abnormal screening. History: Patient is postmenopausal and has history of breast cancer at age 61. Family history of breast cancer in sister at age 56, breast cancer in paternal aunt at age 60, breast cancer in paternal cousin at age 53, breast cancer in paternal cousin at age 68, and breast cancer in paternal cousin at age 65. Benign excisional biopsy of the left breast, November 2018. Malignant MG pre op needle loc LT of the left breast, October 26, 2016. US discontinued breast core LT of the left breast, October 12, 2016. Malignant US biopsy breast VAD LT of the left breast, September 21, 2016. Lumpectomy of the left breast, 2016. Radiation therapy of the left breast, 2016. Benign excisional biopsy of the right breast, 1994. Benign excisional biopsy of the left breast. 3 chemotherapies. Radiation therapy of the left breast. Took estrogen beginning at age 43. Took progesterone beginning at age 43. Taking antineoplastic for 4 years beginning at age 61. US Breast Limited RT Right limited breast ultrasound including focal area of concern, retroareolar and axilla demonstrates no cystic or solid lesion seen. Dense tissue. Scanned 9-12 o'clock. These results were verbally communicated with the patient and result sheet given to the patient on 07/22/21. ASSESSMENT: Negative, BI-RAD 1 RECOMMENDATION: Routine screening mammogram of both breasts in 6 months. Back on schedule.
== END | disposition home or self-care (01) ==
LOC: RADMAMWWP 13:29
PROVIDERS: ATTEND Surgery
DX: N64.89 Other specified disorders of breast (principal); Z85.3 Personal history of malignant neoplasm of breast; Z80.3 Family history of malignant neoplasm of breast; Z78.0 Asymptomatic menopausal state
CPT/HCPCS: 77065; 76642; G0279; 77061

== ENCOUNTER → 2021-07-29 | Outpatient (CLI) | payer MEDICARE ==
[2021-07-29 11:21] VITALS: BP 146/83; PULSE 78; RESP 16; TEMP 98.1
--- NOTE | 2021-07-29 11:32 | P.PN ---
Subjective Progress Note Date: 07/29/21 Principal diagnosis: stage IIA left breast cancer stage IIA left breast cancer Estephania is a 65-year-old white female status post left breast lumpectomy and sentinel node biopsy in October 2016. She subsequently underwent chemotherapy TC followed by radiation therapy which she finished on 05-02-2017.. She is presently on anastrozole. At this time she has no complaints and states she is doing well. The pathologic staging of her tumor was a T2 N0 M0 ER/UT positive, HER-2 negative G3 stage IIA tumor. She underwent a bilateral diagnostic mammogram on , after which an ultrasound of the right breast was recommended. The ultrasound was performed on the same date and this was felt to be benign BIRADS 3 and repeat right breast ultrasound in 6 months time was recommended. She had a repeat right breast mammogram and ultrasound on 07-26-21 which was felt to be stable. This was personally reviewed. She has no masses or lumps in her breasts. No nipple discharge or skin changes of concern. She is not complaining of any pain in her breast. She had noted some swelling of the distal aspect of her 5th digit on the left hand, she had not seen anyone for this and it has improved at this time. She is not painful. It has improved. The patient did have a bone density performed 86769 this was consistent with osteopenia. She is being followed by Dr. Weston for this and takes Prolia, and calcium and vitamin D Family history: brother: bladder cancer sister: brain tumors (not cancer) brother: blood cancer sister: breast cancer father: lung cancer paternal aunt: breast cancer paternal aunt: colon cancer The patient [place] [address] she had a score between (-2.5) -- (-1) Hormonal History: menarche: 13 , 1 at , 1 miscarriage menopause: 43; complete hysterectomy no cancer BCP: <1 year hormones: 12 years Surgical History: 3 C-sections Right breast lump removed on cancer Cyst removed from ovaries Appendectomy Total abdominal hysterectomy Lumpectomy sentinel node biopsy left breast colonoscopy December 2018/ all [place] Medical History: none Social History: smoke: none, stopped 30 years ago alcohol: none drugs: none Review of systems: HEENT: Wears glasses, possible cataracts Lungs: Negative Heart: Negative GI: Negative : Negative Musculoskeletal: Arthritis in her hands endocrine: none hematologic: none neuro: none allergies: as noted Integument: small nodule left 5th digit distal, it does not itch or hurt Objective - Vital Signs Vital signs: Intake & Output 07/28/21 07/29/21 07/29/21 18:59 06:59 18:59 Weight 67.132 kg - Exam BMI 25.4 - Constitutional General appearance: Present: cooperative - EENT Eyes: Present: EOMI ENT: Present: hearing grossly normal - Neck Neck: Present: normal ROM - Respiratory Respiratory: bilateral: CTA - Cardiovascular Rhythm: regular Heart sounds: normal: S1, S2 - Gastrointestinal General gastrointestinal: Present: soft - Integumentary Integumentary: Present: normal turgor - Musculoskeletal Musculoskeletal: Present: gait normal - Psychiatric Psychiatric: Present: A&O x's 3, appropriate affect, intact judgment & insight - Additional findings Additional findings: Breast Exam: BRA: 38C inspection:bilateral grade 3 ptosis; healed scar left breast with post radiation and surgical changes Palpation: Right breast: Positional exam fibrocystic changes no dominant masses or nodules of concern Right axilla: No adenopathy of concern Left breast: Multi-positional exam fibrocystic changes no dominant masses or nodules of concern Left axilla: No adenopathy of concern Assessment and Plan Assessment: Impression: Patient stable status post left breast stage II invasive ductal carcinoma/lumpectomy/chemotherapy/radiation therapy Patient presently on anastrozole No evidence of recurrent cancer Plan: Bilateral mammogram December with physician exam at that time Patient a call sooner if any questions or concerns Continue to follow with medical and radiation oncology CC: Dr. Hunter
== END ==
LOC: WWCWWP 10:28
PROVIDERS: ATTEND Surgery
DX: Z08 Encounter for follow-up examination after completed treatment for malignant neoplasm (principal); Z85.3 Personal history of malignant neoplasm of breast; Z79.811 Long term (current) use of aromatase inhibitors; Z98.890 Other specified postprocedural states; Z91.048 Other nonmedicinal substance allergy status; Z88.5 Allergy status to narcotic agent; Z88.9 Allergy status to unspecified drugs, medicaments and biological substances; Z88.8 Allergy status to other drugs, medicaments and biological substances; Z91.02 Food additives allergy status; Z87.891 Personal history of nicotine dependence

== ENCOUNTER → 2022-01-24 | Outpatient (CLI) | payer MEDICARE ==
--- NOTE | 2022-01-24 11:15 | MM ---
Reason for Exam: Follow-up at short interval from prior study. Last mammogram was performed 1 year(s) and 1 month(s) ago. Patient History: Menarche at age 13. First Full-Term at age 27. Left ovary removed at age 43. Right ovary removed at age 43. Hysterectomy at age 43. Postmenopausal. Breast cancer, age 61. Previous chest radiation therapy at age 61. Previous chemotherapy at age 61. Estrogen, from age 43 until age 59. Progesterone, from age 43 until age 59. Benign Excisional Biopsy on the left side. 1994, Benign Excisional Biopsy on the right side. 11/2018, Benign Excisional Biopsy on the left side. 2016, Lumpectomy on the Left side. 10/26/2016, Malignant Core Biopsy on the left side. 09/21/2016, Malignant Core Biopsy on the left side. Radiation Therapy, left. Chemotherapy. Chemotherapy. Chemotherapy. 2017, Radiation Therapy on the left side. 10/12/2016, US discontinued breast core LT on the left side. Paternal cousin had breast cancer, age 53. Paternal cousin had breast cancer, age 68. Paternal cousin had breast cancer, age 65. Paternal aunt had breast cancer, age 60. Sister had breast cancer, age 56. Tissue Density: The breast tissue is heterogeneously dense. This may lower the sensitivity of mammography. Findings: Analyzed By CAD. Distortion and treatment changes in the posterior lower inner left breast redemonstrated. No suspicious new mass or clustered microcalcification in either breast. Overall Assessment: Benign, BI-RAD 2 Management: Screening Mammogram of both breasts in 1 year. Return to routine follow-up. Results were given to the patient verbally at the time of exam. Electronically signed and approved by: Pedro Luis Ventura M.D.
== END | disposition home or self-care (01) ==
LOC: RADMAMWWP 10:51
PROVIDERS: ATTEND Surgery
DX: R92.8 Other abnormal and inconclusive findings on diagnostic imaging of breast (principal); Z78.0 Asymptomatic menopausal state; Z85.3 Personal history of malignant neoplasm of breast
CPT/HCPCS: 77066; G0279; 77062

== ENCOUNTER → 2022-02-03 | Outpatient (CLI) | payer MEDICARE ==
[2022-02-03 10:09] VITALS: BP 166/75; PULSE 62; RESP 17; TEMP 98.1
--- NOTE | 2022-02-03 10:29 | P.PN ---
Subjective Progress Note Date: 02/03/22 Principal diagnosis: stage IIA left breast cancer stage IIA left breast cancer Estephania is a 65-year-old white female status post left breast lumpectomy and sentinel node biopsy in October 2016. She subsequently underwent chemotherapy TC followed by radiation therapy which she finished on 05-02-2017.. She is presently on anastrozole. At this time she has no complaints and states she is doing well. The pathologic staging of her tumor was a T2 N0 M0 ER/TN positive, HER-2 negative G3 stage IIA tumor. She underwent a bilateral diagnostic mammogram on 01-24-22 which was Benign BIRAD 2. Note from Dr. Weston 09-03-21 reviewed She has no masses or lumps in her breasts. No nipple discharge or skin changes of concern. She is not complaining of any pain in her breast. She had noted some swelling of the distal aspect of her 5th digit on the left hand, she had not seen anyone for this and it has improved at this time. She is not painful. It has improved. The patient did have a bone density performed [id number] this was consistent with osteopenia. She is being followed by Dr. Weston for this and takes Prolia, and calcium and vitamin D Family history: brother: bladder cancer sister: brain tumors (not cancer) brother: blood cancer sister: breast cancer father: lung cancer paternal aunt: breast cancer paternal aunt: colon cancer The patient did have a bone density [place] an 80220 she had a score between (-2.5) -- (-1) Hormonal History: menarche: 13 , 1 at , 1 miscarriage menopause: 43; complete hysterectomy no cancer BCP: <1 year hormones: 12 years Surgical History: 3 C-sections Right breast lump removed on cancer Cyst removed from ovaries Appendectomy Total abdominal hysterectomy Lumpectomy sentinel node biopsy left breast colonoscopy December 2018/ all [place] Medical History: none Social History: smoke: none, stopped 30 years ago alcohol: none drugs: none Review of systems: HEENT: Wears glasses, possible cataracts Lungs: Negative Heart: Negative GI: Negative : Negative Musculoskeletal: Arthritis in her hands endocrine: none hematologic: none neuro: none allergies: as noted Integument: small nodule left 5th digit distal, it does not itch or hurt Objective - Vital Signs Vital signs: Vital Signs Temp 98.1 F 02/03/22 10:07 Pulse 62 02/03/22 10:07 Resp 17 02/03/22 10:07 BP 166/75 02/03/22 10:07 Pulse Ox 98 02/03/22 10:07 FiO2 Intake & Output 02/02/22 02/03/22 02/03/22 18:59 06:59 18:59 Weight 68.039 kg - Exam BMI: 25 - Constitutional General appearance: Present: cooperative - EENT Eyes: Present: EOMI ENT: Present: hearing grossly normal - Neck Neck: Present: normal ROM - Respiratory Respiratory: bilateral: CTA - Cardiovascular Rhythm: regular Heart sounds: normal: S1, S2 - Integumentary Integumentary: Present: normal turgor - Musculoskeletal Musculoskeletal: Present: gait normal - Psychiatric Psychiatric: Present: A&O x's 3, appropriate affect, intact judgment & insight - Additional findings Additional findings: Breast examination: Bra: 38C Inspection: Well-healed scar left breast from prior surgery/radiation Palpation: Right breast: Multiple positional exam fibrocystic changes no dominant masses or nodules of concern Right axilla: No adenopathy of concern Left breast: Multi-positional exam fibrocystic changes no evidence of recurrent cancer, no dominant masses or nodules of concern, well-healed scars from prior surgery Left axilla: No adenopathy of concern Eye : right eye ? pustule noted and erythema medial aspect of the eye left : no injury noted Assessment and Plan Assessment: Impression: Stage to a left breast invasive ductal carcinoma no evidence of recurrent cancer Patient continues on anastrozole she will be nearing her 5 year time we will discuss stopping this with Dr. Weston Patient had an injury to her right eye with some hyphema and questionable pustule Plan: Patient will follow up with primary care doctor regarding right IV Continue anastrozole until seen by Dr. Osei Bilateral mammogram in 1 year Follow-up care if any questions or concerns
== END ==
LOC: WWCWWP 09:45
PROVIDERS: ATTEND Surgery
DX: Z08 Encounter for follow-up examination after completed treatment for malignant neoplasm (principal); Z85.3 Personal history of malignant neoplasm of breast; Z98.890 Other specified postprocedural states; Z88.8 Allergy status to other drugs, medicaments and biological substances; Z88.5 Allergy status to narcotic agent; Z91.02 Food additives allergy status; Z91.048 Other nonmedicinal substance allergy status

== ENCOUNTER 2022-06-18 19:17 | Observation (INO) | payer MEDICARE ==
[2022-06-18] MEDS ORDERED: ASPIRIN 81 MG PO STA (19:49)
[2022-06-18] MEDS ORDERED: KETOROLAC 15 MG/ML 1 ML VIAL IM STA (19:49)
--- NOTE | 2022-06-18 20:04 | ED ---
General Adult HPI - General Chief complaint: Chest Pain Stated complaint: Chest Pain Time Seen by Provider: 06/18/22 19:33 Source: patient, RN notes reviewed, old records reviewed Mode of arrival: ambulatory Limitations: no limitations - History of Present Illness Initial comments: Patient is a 66-year-old female with past medical history remarkable for acid reflux, breast cancer who presents emergency Department complaining of sudden onset chest pain that occurred earlier today. Has a history of intermittent hypertension that she attributes to white coat syndrome. States that earlier today she was joking with her while texting a family member when again feeling different. She states she felt she had some chest pain that radiated across her lower chest. This was associated with some neck tightness. Symptoms have more or less resolved since earlier. Symptoms started approximate 6 PM, and I evaluated the patient a little after 7:30 PM. She currently is only complaining of a little bit of neck tightness which is drastically improved from earlier. Denies any shortness of breath. Denies any history of blood clots or long distance travel. Denies any history of cardiac stents, CAD. Denies any history of lower extremity swelling, fevers, chills, cough. Denies any abdominal pain, nausea, vomiting. Has no known sick contacts. Presents emergency department for further evaluation of this time over concern for chest pain. Has not had this pain previously.No known palliative or provocative factors. - Related Data Home Medications Medication Instructions Recorded Confirmed Prolia (Unknown Dose) 1 dose SQ Q182D 12/20/18 06/18/22 Cholecalciferol [Vitamin D3 (25 50 mcg PO Q3D 06/18/22 06/18/22 Mcg = 1000 Iu)] Allergies Allergy/AdvReac Type Severity Reaction Status Date / Time Stevzqj-FTG-SsE Reductase Allergy Severe MUSCLE Verified 06/18/22 20:19 Inhibitor WEAKNESS [Ufqssgw-Cun-Png Reductase Inhibitor] adhesive AdvReac Unknown Rash/Hives Verified 06/18/22 20:19 codeine AdvReac Unknown IRRITATED, Verified 06/18/22 20:19 ANGRY magnesium AdvReac Unknown DRY HEAVES Verified 06/18/22 20:19 prednisone AdvReac Unknown THRUSH Verified 06/18/22 20:19 aspartame AdvReac Diarrhea Verified 06/18/22 20:19 Review of Systems ROS Statement: Those systems with pertinent positive or pertinent negative responses have been documented in the HPI. Review of Systems: CONST: Denies fever EYES: Denies blurry vision ENT: Denies nasal congestion C/V: Denies Chest pain RESP: Denies shortness of breath GI: Denies abdominal pain : Denies dysuria SKIN: Denies rash. MSK: Denies joint pain. NEURO: Denies headache ROS Other: All systems not noted in ROS Statement are negative. Past Medical History Past Medical History: Cancer, GERD/Reflux Additional Past Medical History / Comment(s): anemia at 18 yrs old, hx broken left elbow/no surgery, hx back injury. , legs cramps at night ., osteopenia., left breast cancer (September 2016 with surgery, chemo & radiation), cataracts. History of Any Multi-Drug Resistant Organisms: None Reported Past Surgical History: Appendectomy, Bladder Surgery, Breast Surgery, Section, Hysterectomy Additional Past Surgical History / Comment(s): Section X3, D&C, Hx Grapefruit sized cyst behind ovary with Appendectomy, Cyst removed right breast, Bladder suspension, cyst removed right axilla, breast biopsy . Past Anesthesia/Blood Transfusion Reactions: Motion Sickness, Postoperative Nausea & Vomiting (PONV) Past Psychological History: Anxiety Smoking Status: Former smoker Past Alcohol Use History: None Reported Past Drug Use History: None Reported - Past Family History Father Family Medical History: Cancer, COPD, Thyroid Disorder Additional Family Medical History / Comment(s): LUNG CANCER. FATHERS FAMILY- AUNT BREAST & COLON CANCER., UNCLE LEUKEMIA. Sister(s) Additional Family Medical History / Comment(s): BRAIN TUMORS (NON-CANCEROUS) Brother(s) Additional Family Medical History / Comment(s): WEGENERS DISEASE General Exam - General Exam Comments Initial Comments: General: Appears in no acute distress. HEAD: Normal with no signs of head trauma. EYES: PERRLA, EOMI, conjunctiva normal, no discharge. ENT: Hearing grossly intact, normal oropharynx. RESPIRATORY: Clear breath sounds bilaterally. No wheezes, rales, or rhonchi. C/V: Regular rate and rhythm. S1 and S2 auscultated, no edema, peripheral pulses 2+ and intact throughout. Chest pain is not reproducible on palpation. ABD: Abd is soft, nontender, nondistended EXT: Normal range of motion, no obvious deformity SKIN: No rashes or lesions observed on exposed skin. NEURO: Alert and oriented 4. Limitations: no limitations Course Vital Signs 06/18/22 06/18/22 06/18/22 19:19 20:00 21:31 Temperature 97.5 F L Pulse Rate 74 66 61 Respiratory 18 18 16 Rate Blood Pressure 210/94 169/82 181/98 O2 Sat by Pulse 99 99 98 Oximetry Medical Decision Making - Medical Decision Making Based on the patient's presentation and physical exam, she presents over concern for chest pain that was acute onset approximately an hour and a half ago. She is currently relatively symptom-free. Is a little bit of residual neck tightness but that is all. No longer any chest pain. I'm concerned for possible cardio pulmonary etiology at this time including ACS, PE, pneumothorax. We will obtain cardio pony labs, chest x-ray, EKG. She was in agreement this plan. She'll be given IV Toradol as well as aspirin. Vital signs are within acceptable limits at this time. She was initially hypertensive in triage which resolved when she was in the room, his blood pressure is now 180s systolic. States she does have an intermittent history of becoming hypertensive when she persents to the doctor's office. Not on any antihypertensive medications. EKG shows no signs of acute ischemia.Patient's chest x-ray as interpreted by myself reveals no acute cardio upon a process, no infiltrate. Laboratory studies are remarkable for mild hypokalemia at 3.4, troponin is undetectable. D-dimer is within normal limits. On reevaluation, I did discuss the patient's workup with her and that is n egative. She is feeling improved at this time. Patient's heart score is moderate at 4. I did recommend that we admit her to observation telemetry to keep an eye in her and from the troponin. Cardiology can see her for chest pain. She was in agreement with this plan. I spoke with the admitting physician, Dr. Hunter who accepted the patient. Cardiology was consulted. We will trend her troponin. - Lab Data Result diagrams: 06/18/22 20:03 06/18/22 20:03 Lab Results 06/18/22 06/18/22 06/18/22 Range/Units 20:03 20:03 20:03 WBC 4.4 (3.8-10.6) k/uL RBC 3.77 L (3.80-5.40) m/uL Hgb 12.5 (11.4-16.0) gm/dL Hct 35.8 (34.0-46.0) % MCV 95.0 (80.0-100.0) fL MCH 33.3 (25.0-35.0) pg MCHC 35.0 (31.0-37.0) g/dL RDW 13.1 (11.5-15.5) % Plt Count 205 (150-450) k/uL MPV 8.1 Neutrophils % 59 % Lymphocytes % 31 % Monocytes % 5 % Eosinophils % 3 % Basophils % 1 % Neutrophils # 2.6 (1.3-7.7) k/uL Lymphocytes # 1.3 (1.0-4.8) k/uL Monocytes # 0.2 (0-1.0) k/uL Eosinophils # 0.1 (0-0.7) k/uL Basophils # 0.0 (0-0.2) k/uL PT 9.8 (9.0-12.0) sec INR 0.9 (<1.2) APTT 27.6 (22.0-30.0) sec D-Dimer 0.25 (<0.60) mg/L FEU Sodium 137 (137-145) mmol/L Potassium 3.4 L (3.5-5.1) mmol/L Chloride 103 (98-107) mmol/L Carbon Dioxide 29 (22-30) mmol/L Anion Gap 5 mmol/L BUN 17 (7-17) mg/dL Creatinine 0.82 (0.52-1.04) mg/dL Est GFR (CKD-EPI)AfAm 86 (>60 ml/min/1.73 sqM) Est GFR (CKD-EPI)NonAf 75 (>60 ml/min/1.73 sqM) Glucose 150 H (74-99) mg/dL Calcium 9.3 (8.4-10.2) mg/dL Magnesium 2.4 H (1.6-2.3) mg/dL Total Bilirubin 0.3 (0.2-1.3) mg/dL AST 29 (14-36) U/L ALT 38 H (4-34) U/L Alkaline Phosphatase 59 (38-126) U/L Troponin I (0.000-0.034) ng/mL Total Protein 6.7 (6.3-8.2) g/dL Albumin 4.4 (3.5-5.0) g/dL Amylase 64 (30-110) U/L Lipase 93 (23-300) U/L 06/18/22 Range/Units 20:03 WBC (3.8-10.6) k/uL RBC (3.80-5.40) m/uL Hgb (11.4-16.0) gm/dL Hct (34.0-46.0) % MCV (80.0-100.0) fL MCH (25.0-35.0) pg MCHC (31.0-37.0) g/dL RDW (11.5-15.5) % Plt Count (150-450) k/uL MPV Neutrophils % % Lymphocytes % % Monocytes % % Eosinophils % % Basophils % % Neutrophils # (1.3-7.7) k/uL Lymphocytes # (1.0-4.8) k/uL Monocytes # (0-1.0) k/uL Eosinophils # (0-0.7) k/uL Basophils # (0-0.2) k/uL PT (9.0-12.0) sec INR (<1.2) APTT (22.0-30.0) sec D-Dimer (<0.60) mg/L FEU Sodium (137-145) mmol/L Potassium (3.5-5.1) mmol/L Chloride (98-107) mmol/L Carbon Dioxide (22-30) mmol/L Anion Gap mmol/L BUN (7-17) mg/dL Creatinine (0.52-1.04) mg/dL Est GFR (CKD-EPI)AfAm (>60 ml/min/1.73 sqM) Est GFR (CKD-EPI)NonAf (>60 ml/min/1.73 sqM) Glucose (74-99) mg/dL Calcium (8.4-10.2) mg/dL Magnesium (1.6-2.3) mg/dL Total Bilirubin (0.2-1.3) mg/dL AST (14-36) U/L ALT (4-34) U/L Alkaline Phosphatase (38-126) U/L Troponin I <0.012 (0.000-0.034) ng/mL Total Protein (6.3-8.2) g/dL Albumin (3.5-5.0) g/dL Amylase (30-110) U/L Lipase (23-300) U/L - EKG Data -: EKG Interpreted by Me EKG Comments: 12-lead Electrocardiogram Interpretation Note EKG was reviewed and interpreted by myself. 12-lead ECG performed at 1926 is interpreted by me as revealing normal sinus rhythm at a rate of 65 beats per minute.. [place] is normal. [place] interval is 156 ms, QRS duration is 96 ms, QTc is 438 ms.. There were no ST or T wave abnormalities to suggest myocardial ischemia or injury. R wave progression across the precordium was satisfactory. By my interpretation this EKG is non-diagnostic for acute ischemia. No prior EKG for comparison. Disposition Clinical Impression: Chest pain Disposition: ADMITTED IP TO THIS HOSP Condition: Stable Referrals: Aguila Hunter MD [Primary Care Provider] - 1-2 days Time of Disposition: 21:10
[2022-06-18 20:17] LABS: Basophils % (A) 1 %; Eosinophils # (A) 0.1 k/uL (0-0.7); Eosinophils % (A) 3 %; HCT 35.8 % (34.0-46.0); HGB 12.5 gm/dL (11.4-16.0); Lymphocytes # (A) 1.3 k/uL (1.0-4.8); Lymphocytes % (A) 31 %; MCH 33.3 pg (25.0-35.0); Mean Platelet Volume 8.1; Monocytes # (A) 0.2 k/uL (0-1.0); Monocytes % (A) 5 %; Neutrophils # (A) 2.6 k/uL (1.3-7.7); Neutrophils % (A) 59 %; Platelet Count 205 k/uL (150-450); RBC 3.77 m/uL (3.80-5.40); RDW 13.1 % (11.5-15.5); WBC 4.4 k/uL (3.8-10.6)
--- NOTE | 2022-06-18 20:29 | XR ---
EXAMINATION TYPE: XR chest 2V DATE OF EXAM: 06/18/2022 COMPARISON: NONE HISTORY: Chest pain TECHNIQUE: 2 views FINDINGS: Heart and mediastinum are normal. Lungs are clear. Diaphragm is normal. Bony thorax is norm al. IMPRESSION: Normal chest.
[2022-06-18 20:37] LABS: Albumin 4.4 g/dL (3.5-5.0); Calcium 9.3 mg/dL (8.4-10.2); Magnesium 2.4 mg/dL (1.6-2.3); Potassium 3.4 mmol/L (3.5-5.1); Total Bilirubin 0.3 mg/dL (0.2-1.3); Total Protein 6.7 g/dL (6.3-8.2)
[2022-06-18 20:38] LABS: INR 0.9 (<1.2); Partial Thromboplastin Time 27.6 sec (22.0-30.0); Prothrombin Time 9.8 sec (9.0-12.0)
[2022-06-18] MEDS ORDERED: KETOROLAC 15 MG/ML 1 ML VIAL IVP PRN (21:33)
[2022-06-18] MEDS ORDERED: NALOXONE 0.4 MG/ML 1 ML VIAL IV PRN (21:33)
[2022-06-18] MEDS: HEPARIN SODIUM,PORCINE/PF 5,000 UNIT/0.5 ML SYRINGE SQ SCH (23:04)
[2022-06-19 05:22] LABS: Basophils % (A) 1 %; Eosinophils # (A) 0.2 k/uL (0-0.7); Eosinophils % (A) 4 %; HCT 33.8 % (34.0-46.0); HGB 11.8 gm/dL (11.4-16.0); Lymphocytes # (A) 1.2 k/uL (1.0-4.8); Lymphocytes % (A) 25 %; MCH 32.2 pg (25.0-35.0); MCHC 34.8 g/dL (31.0-37.0); MCV 92.6 fL (80.0-100.0); Mean Platelet Volume 8.2; Monocytes # (A) 0.3 k/uL (0-1.0); Monocytes % (A) 5 %; Neutrophils % (A) 62 %; Platelet Count 199 k/uL (150-450); RBC 3.65 m/uL (3.80-5.40); WBC 4.8 k/uL (3.8-10.6)
[2022-06-19 05:33] LABS: African American GFR (CKD) >90 (>60 ml/min/1.73 sqM); Anion Gap 4 mmol/L; Blood Urea Nitrogen 18 mg/dL (7-17); Calcium 8.8 mg/dL (8.4-10.2); Carbon Dioxide 30 mmol/L (22-30); Chloride 105 mmol/L (98-107); Glucose 107 mg/dL (74-99); Non-African American GFR(CKD) 81 (>60 ml/min/1.73 sqM); Potassium 3.9 mmol/L (3.5-5.1); Sodium 139 mmol/L (137-145)
[2022-06-19] MEDS: HEPARIN SODIUM,PORCINE/PF 5,000 UNIT/0.5 ML SYRINGE SQ SCH ×3 (08:54→23:59)
[2022-06-19] MEDS: amLODIPine 5 MG TAB PO SCH (10:23)
--- NOTE | 2022-06-19 12:29 | CONS ---
CONSULTATION CHIEF COMPLAINT: Chest pain. HISTORY OF PRESENT ILLNESS: This is a 66-year-old lady with no significant past medical history who presented to hospital complaining of chest discomfort. The chest pain is sharp, mild intensity pericardial that radiated across the lower chest. There were no clear-cut relieving or exacerbating factors. It is not associated with shortness of breath or diaphoresis. There is no prior history of coronary artery disease or congestive heart failure and there is no prior history of hypertension, diabetes, or dyslipidemia. EKG shows sinus rhythm with nonspecific ST-T wave changes. On her initial presentation, her blood pressure was elevated at 160/70. At the time of my evaluation this morning, she is chest pain-free and hemodynamically stable. Three sets of cardiac enzymes have been negative. An echo had been ordered, I will review the results once they are available. PAST MEDICAL HISTORY: Negative for hypertension, diabetes, and dyslipidemia. MEDICATIONS AT HOME: 1. Prolia. 2. Vitamin D. ALLERGIES: She is allergic to codeine, magnesium, prednisone, and statins. FAMILY HISTORY: Negative for premature coronary artery disease. SOCIAL HISTORY: Negative for smoking, EtOH or drug abuse. REVIEW OF SYSTEMS: HEENT: Unremarkable. CARDIAC: As described above. RESPIRATORY: Negative. GI: Negative. GENITOURINARY: Negative. ALLERGY/IMMUNOLOGY: Negative. MUSCULOSKELETAL: Negative. ENDOCRINE: Negative. DERM: Negative. CONSTITUTIONAL: Negative. ONCOLOGICAL: Negative. DRAPERY HEAD FORMER: Negative. Rest of the system review is not relevant. PHYSICAL EXAMINATION: GENERAL: Comfortable at rest. VITAL SIGNS: Stable. NECK: There is no jugular venous distention. Carotid upstroke is normal. There is no bruit. CHEST: Reveals good air entry bilaterally. HEART: Reveals first and second heart sounds. No gallop, no murmur. ABDOMEN: Soft. EXTREMITIES: Did not reveal edema, peripheral pulses are felt. LABS: Have been reviewed. Troponins are negative. EKG did not reveal acute ischemic changes. ASSESSMENT AND PLAN: Chest pain, rule out coronary artery disease. I will obtain a 2D echo to evaluate her LV function and wall motion. I will schedule her for a stress echo tomorrow morning. If this is abnormal, consider cardiac catheterization on her. MMODL / IJN: [id number] /
--- NOTE | 2022-06-19 16:12 | CA ---
Transthoracic Echo Report Name: Estephania Solitario Age: 66 Gender: F : 1955 Exam Date: 06/19/2022 09:14 Exam Location: [facility] Ht (in): 50 Wt (lb): 152 Ordering Physician: Divya Cantrell Attending/Referring Phys: Chief Analytics Officer Lesia Mario RDCS Procedure CPT: Indications: CP Cardiac Hx: Technical Quality: Contrast 1: Total Dose (mL): Contrast 2: Total Dose (mL): MEASUREMENTS (Male / Female) Normal Values 2D ECHO LV Diastolic Diameter PLAX 3.9 cm 4.2 - 5.9 / 3.9 - 5.3 cm LV Systolic Diameter PLAX 2.9 cm IVS Diastolic Thickness 1.1 cm 0.6 - 1.0 / 0.6 - 0.9 cm LVPW Diastolic Thickness 1.1 cm 0.6 - 1.0 / 0.6 - 0.9 cm LV Relative Wall Thickness 0.6 RV Internal Dim ED PLAX 3.1 cm LA Systolic Diameter LX 3.0 cm 3.0 - 4.0 / 2.7 - 3.8 cm LA Volume 55.4 cm??? 18 - 58 / 22 - 52 cm??? M-MODE Aortic Root Diameter MM 2.9 cm LA Systolic Diameter MM 3.1 cm LA Ao Ratio MM 1.1 MV E Point Septal Separation 0.3 cm AV Cusp Separation MM 1.4 cm DOPPLER MV Area PHT 2.6 cm??? Mitral E Point Velocity 82.6 cm/s Mitral A Point Velocity 96.1 cm/s Mitral E to A Ratio 0.9 MV Deceleration Time 286.8 ms MV E' Velocity 8.7 cm/s Mitral E to MV E' Ratio 9.5 TR Peak Velocity 148.2 cm/s TR Peak Gradient 8.8 mmHg Right Ventricular Systolic Press 13.8 mmHg FINDINGS Left Ventricle Mildly increased septal wall thickness. Mildly increased posterior wall thickness. Left ventricular ejection fraction is estimated at 55 %. Left ventricular cavity size normal. Right Ventricle Normal right ventricular size and function. Right ventricular systolic pressure within normal limits. Right Atrium Normal right atrial size. Left Atrium Mildly increased left atrial volume. Mitral Valve Structurally normal mitral valve. Mild mitral regurgitation. Aortic Valve Trileaflet aortic valve. Tricuspid Valve Structurally normal tricuspid valve. Mild tricuspid regurgitation. Pulmonic Valve Structurally normal pulmonic valve. Pericardium Normal pericardium. Aorta Normal size aortic root and proximal ascending aorta. CONCLUSIONS Normal LV systolic function Previewed by: Dr. Kyler Clifford MD (Electronically Signed) Final Date: 19 June 2022 16:11
--- NOTE | 2022-06-19 22:35 | HP ---
HISTORY AND PHYSICAL CHIEF COMPLAINT: Chest pain. HISTORY OF PRESENT ILLNESS: This lady was at home, comfortable, when she suddenly developed anterior chest pain. It was fairly atypical. There is no radiation of the pain into the arms, neck, back, etc. She had no diaphoresis, shortness of breath, nausea, etc. She came to the emergency room where studies were negative. REVIEW OF SYSTEMS: She has never had any heart trouble. She has occasionally had problems with blood pressure. She has had no lung disease, asthma, pleurisy, abscess, sputum production, shortness of breath, etc. She has had no murmurs or rheumatic fever. She has had no abdominal pain, nausea, vomiting, indigestion, melena, hematochezia, jaundice, hepatitis, cirrhosis, renal failure, hematuria, frequency, urgency, diabetes, etc. Past medical history, family history, and personal and social histories reveal that she has been treated for breast cancer in the past and is doing well without sequelae. She used to smoke but has quit. She does have a history of heart disease. PHYSICAL EXAMINATION: VITAL SIGNS: Blood pressure is 146/87 with a pulse of 83, respirations 29, and she is afebrile. GENERAL: She appeared to be well developed, well nourished, in no acute distress. SKIN: Color is normal. Skin is warm and dry. LYMPH NODES: Not enlarged. HEAD, EARS, EYES, NOSE, MOUTH, AND THROAT: Normal. NECK: Neck veins not distended. Thyroid is not enlarged. CHEST: Clear. CARDIAC: Normal. ABDOMEN: Soft and nontender. EXTREMITIES: Normal. IMPRESSION: 1. Atypical chest pain. 2. History of breast carcinoma. 3. Family history of heart disease. PLAN: 1. Bedrest. 2. IV fluids. 3. Serial EKGs and enzymes. 4. Cardiology consult. MMODL / IJN: [id number] /
--- NOTE | 2022-06-20 02:20 | PN ---
PROGRESS NOTE DATE OF SERVICE: 06/19/2022 CHIEF COMPLAINT: Atypical chest pain. HISTORY OF PRESENT ILLNESS: This lady is doing well, and the pain is gone. Cardiology plans to stress test tomorrow. She is doing well otherwise. PHYSICAL EXAMINATION: VITAL SIGNS: Normal. CHEST: Clear. CARDIAC: Normal. ABDOMEN: Soft, nontender. IMPRESSION: 1. Atypical chest pain. 2. Family history of heart disease. 3. History of breast cancer. PLAN: She will undergo a stress study tomorrow. MMODL / IJN: [id number] /
[2022-06-20] MEDS: amLODIPine 5 MG TAB PO SCH (07:31)
[2022-06-20] MEDS: HEPARIN SODIUM,PORCINE/PF 5,000 UNIT/0.5 ML SYRINGE SQ SCH ×2 (08:14)
--- NOTE | 2022-06-20 10:09 | CA ---
Stress Echo Report Estephania Solitario Age: 66 Gender: F : 1955 Exam Date: 06/20/2022 08:27 Exam Location: [facility] Ht (in): 60 Wt (lb): 152 Ordering Physician: Kyler Clifford MD ([id number]) Referring Physician: Darrin ALVARADO Compliance Paralegal: NITESH Technologist Procedure CPT: Indication: CP ICD-9 Codes: Rhythm: Patient History: Cardiac Medications: Medications in past 24 hours: Contrast: Stress Results Protocol: Gil Total dose(mL): Exercise Duration (min:sec): 6:[address] Depression (mm): Angina Score: Field Score: METS: 7.5 Resting HR: 80 Resting BP: 157 / 76 Peak HR: 157 Peak BP: 221 / 48 Max Predicted HR: 154 102 % Max Predicted HR Target HR: 131 Double Product: [id number] Stress Summary: BP Response: Reason for Termination: Reached target heart rate or work-load Cardiac Symptoms: NO SYMPTOMS ECG Analysis Resting ECG: Stress ECG: Arrhythmia: Echo Analysis Resting Echo: Peak Echo Analysis: MEASUREMENTS (Male/Female) Normal Values CONCLUSIONS Baseline hypertension Hypertensive response to exercise ALLERGIES excess capacity Right bundle branch block aberrancy with exercise No ECG or echocardiographic evidence for ischemia Upsloping ST depression in exercise Good augmentation of overall LV contractility at peak exercise No wall motion abnormalities noted Impression No ECG or echocardiographic evidence of ischemia Dr. Lawrence Umaña MD (Electronically Signed) Final Date: 20 June 2022 10:09
[2022-06-20 14:08] VITALS: BP 138/73; PULSE 80; RESP 14; TEMP 98.1
--- NOTE | 2022-06-20 17:40 | P.PN ---
Subjective Patient is walking on room No chest discomfort dizziness lightheadedness or shortness of breath She was admitted with chest discomfort She was started on amlodipine 5 g daily for hypertension management Blood pressure is mildly elevated She has no chest discomfort now Cardiac enzymes are normal Heart sounds S1 and S2 are normal no murmurs Breath sounds are clear No JVD Hemoglobin around 12 Rectalized normal Normal renal function Normal cardiac enzymes 3 Normal lipase Impression Recurrent chest discomfort New Diagnosis of hypertension Plan Proceed with exercise stress echo Continue amlodipine Further management thereafter Objective - Vital Signs Vital signs: Vital Signs Temp 98.1 F 06/20/22 14:07 Pulse 80 06/20/22 14:07 Resp 14 06/20/22 14:07 BP 138/73 06/20/22 14:07 Pulse Ox 97 06/20/22 14:07 FiO2 Intake & Output 06/19/22 06/20/22 06/20/22 18:59 06:59 18:59 Intake Total 958 Balance 958 Intake: Oral 958 Other: Voiding Method Toilet # Voids 3 2 3 - Labs CBC & Chem 7: 06/19/22 05:07 06/19/22 05:07
--- NOTE | 2022-06-20 23:57 | DS ---
DISCHARGE SUMMARY CHIEF COMPLAINT: Chest pain. HISTORY OF PRESENT ILLNESS AND PHYSICAL EXAMINATION: Details of this lady's history and physical can be found in the initial workup. LABORATORY STUDIES: While she was in the hospital, she had laboratory studies, details of which can be found in the laboratory section of her chart. COURSE IN THE HOSPITAL: After admission, she was placed on bedrest, started on intravenous fluids and had serial EKGs and enzymes, they were normal. She was taken for a stress study by Cardiology, which was negative. It was felt that she could be discharged. She will go home on her usual diet, activity, medication and we will follow up in the office in several days. FINAL DIAGNOSES: 1. Chest pain. 2. History of carcinoma of the breast. 3. Family history of heart disease. OPERATIONS: None. CONSULTATIONS: Cardiology. She is improved. ANGELICA / ERVIN: [id number] /
== END 2022-06-20 15:13 | disposition home or self-care (01) ==
LOC: EC 19:17 → 6NMEDSUR 21:33
PROVIDERS: ADMIT Family Medicine; ATTEND Family Medicine
DX: R07.89 Other chest pain (principal); I10 Essential (primary) hypertension; K21.9 Gastro-esophageal reflux disease without esophagitis; F41.9 Anxiety disorder, unspecified; E87.6 Hypokalemia; Z85.3 Personal history of malignant neoplasm of breast; Z87.891 Personal history of nicotine dependence; Z88.5 Allergy status to narcotic agent; Z82.49 Family history of ischemic heart disease and other diseases of the circulatory system
CPT/HCPCS: 96372 ×2; 99285; 36415; 94760; 93005; 93306; 93351; 85379; 80053; 80048; 82150; 83690; 83735; 84484 ×2; 85025 ×2; 85610; 85730; 83036; 71046; G0378 ×3; J1885; J1644

== ENCOUNTER → 2023-01-25 | Outpatient (CLI) | payer MEDICARE ==
--- NOTE | 2023-01-26 08:49 | MM ---
Reason for Exam: Hx of breast augmentation, asymptomatic. Last screening mammogram was performed 12 month(s) ago. Patient History: Menarche at age 13. First Full-Term at age 27. Left ovary removed at age 43. Right ovary removed at age 43. Hysterectomy at age 43. Postmenopausal. Breast cancer, left, age 61. Previous chest radiation therapy at age 61. Previous chemotherapy at age 61. Estrogen, from age 43 until age 59. Progesterone, from age 43 until age 59. Benign Excisional Biopsy on the left side. 1994, Benign Excisional Biopsy on the right side. 11/2018, Benign Excisional Biopsy on the left side. 2016, Lumpectomy on the Left side. 10/26/2016, Malignant Core Biopsy on the left side. 09/21/2016, Malignant Core Biopsy on the left side. Radiation Therapy, left. Chemotherapy. Chemotherapy. Chemotherapy. 2016, Radiation Therapy on the left side. 10/12/2016, discontinued breast core LT on the left side. Paternal cousin had breast cancer, age 53. Paternal cousin had breast cancer, age 68. Paternal cousin had breast cancer, age 65. Paternal aunt had breast cancer, age 60. Sister had breast cancer, age 56. Prior Study Comparison: 09/21/2016 Left Diagnostic Mammogram, [facility]. 10/31/2017 Bilateral Diagnostic Mammogram, [facility]. 11/01/2018 Bilateral Diagnostic Mammogram, [facility]. 01/09/2020 Bilateral Diagnostic Mammogram, [facility]. 01/12/2021 Bilateral Diagnostic Mammogram, [facility]. 07/22/2021 Right Diagnostic Mammogram, [facility]. 01/24/2022 Bilateral MG 3D diag mammo w/cad [facility], [facility]. Tissue Density: The breast tissue is heterogeneously dense. This may lower the sensitivity of mammography. Findings: Analyzed By CAD. There is no suspicious group of microcalcifications or new suspicious mass in either breast. Overall Assessment: Benign, BI-RAD 2 Management: Screening Mammogram of both breasts in 1 year. . Patient should continue monthly self-breast exams. A clinical breast exam by your physician is recommended on an annual basis. This exam should not preclude additional follow-up of suspicious palpable abnormalities. Note on Miguelina scores and lifetime risk: 1. A Miguelina score greater than 3% is considered moderate risk. If this is the case, consider specialist referral to assess eligibility for a risk reducing agent. 2. If overall lifetime risk for the development of breast cancer is 20% or higher, the patient may qualify for future screening with alternating mammogram and breast MRI. Electronically signed and approved by: Je Hu M.D. Radiologis
== END | disposition home or self-care (01) ==
LOC: RADMAMWWP 08:53
PROVIDERS: ATTEND Surgery
DX: Z12.31 Encounter for screening mammogram for malignant neoplasm of breast (principal); Z78.0 Asymptomatic menopausal state; Z80.3 Family history of malignant neoplasm of breast
CPT/HCPCS: 77063; 77067

== ENCOUNTER → 2023-01-27 | Outpatient (CLI) | payer MEDICARE ==
[2023-01-27 13:20] VITALS: BP 163/77; PULSE 77; RESP 13; TEMP 98.7
--- NOTE | 2023-01-27 14:07 | P.PN ---
Subjective Progress Note Date: 01/27/23 stage IIA left breast cancer Estephania is a 67-year-old white female status post left breast lumpectomy and sentinel node biopsy in October 2016. She subsequently underwent chemotherapy TC followed by radiation therapy which she finished on 05-02-2017.. She is presently on anastrozole. At this time she has no complaints and states she is doing well. The pathologic staging of her tumor was a T2 N0 M0 ER/ME positive, HER-2 negative G3 stage IIA tumor. She underwent a bilateral diagnostic mammogram on 01-25-23 which was Benign BIRAD 2. Note from Dr. Weston 03-03-22 reviewed decided to stop Anastrazole in April 2023; she restarted this and will continue at this time She has no masses or lumps in her breasts. No nipple discharge or skin changes of concern. She is not complaining of any pain in her breast. The patient did have a bone density performed 59040 this was consistent with osteopenia. She is being followed by Dr. Weston for this and takes Prolia, and calcium and vitamin D Family history: brother: bladder cancer sister: brain tumors (not cancer) brother: blood cancer sister: breast cancer father: lung cancer paternal aunt: breast cancer paternal aunt: colon cancer The patient [place] [address] she had a score between (-2.5) -- (-1) Hormonal History: menarche: 13 , 1 at , 1 miscarriage menopause: 43; complete hysterectomy no cancer BCP: <1 year hormones: 12 years Surgical History: 3 C-sections Right breast lump removed on cancer Cyst removed from ovaries Appendectomy Total abdominal hysterectomy Lumpectomy sentinel node biopsy left breast colonoscopy December 2018/ all [place] bilateral cataract surgery Medical History: none Social History: smoke: none, stopped 30 years ago alcohol: none drugs: none Review of systems: HEENT: Wears glasses, possible cataracts Lungs: Negative Heart: Negative GI: Negative : Negative Musculoskeletal: Arthritis in her hands endocrine: none hematologic: none neuro: none allergies: as noted Integument: small nodule left 5th digit distal, it does not itch or hurt Objective - Vital Signs Vital signs: Vital Signs Temp 98.7 F 01/27/23 13:16 Pulse 77 01/27/23 13:16 Resp 13 01/27/23 13:16 BP 163/77 01/27/23 13:16 Pulse Ox 97 01/27/23 13:16 FiO2 Intake & Output 01/26/23 01/27/23 01/27/23 18:59 06:59 18:59 Weight 68.946 kg - Constitutional General appearance: Present: cooperative - EENT Eyes: Present: EOMI ENT: Present: hearing grossly normal - Neck Neck: Present: normal ROM - Respiratory Respiratory: bilateral: CTA - Cardiovascular Rhythm: regular Heart sounds: normal: S1, S2 - Gastrointestinal General gastrointestinal: Present: soft - Integumentary Integumentary: Present: normal turgor - Musculoskeletal Musculoskeletal: Present: gait normal - Psychiatric Psychiatric: Present: A&O x's 3, appropriate affect, intact judgment & insight - Additional findings Additional findings: Breast examination: Bra: 38C Inspection: Well-healed scar left breast from prior surgery/radiation Palpation: Right breast: Multiple positional exam fibrocystic changes no dominant masses or nodules of concern Right axilla: No adenopathy of concern Left breast: Multi-positional exam fibrocystic changes no evidence of recurrent cancer, no dominant masses or nodules of concern, well-healed scars from prior surgery Left axilla: No adenopathy of concern Assessment and Plan Assessment: Impression: 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
== END ==
LOC: WWCWWP 12:46
PROVIDERS: ATTEND Surgery
DX: C50.912 Malignant neoplasm of unspecified site of left female breast (principal); Z17.0 Estrogen receptor positive status [ER+]; Z79.811 Long term (current) use of aromatase inhibitors; Z80.3 Family history of malignant neoplasm of breast; Z90.49 Acquired absence of other specified parts of digestive tract; Z90.722 Acquired absence of ovaries, bilateral; Z87.891 Personal history of nicotine dependence; Z88.5 Allergy status to narcotic agent; Z91.048 Other nonmedicinal substance allergy status; Z88.8 Allergy status to other drugs, medicaments and biological substances

== ENCOUNTER → 2024-01-29 | Outpatient (CLI) | payer MEDICARE ==
--- NOTE | 2024-01-29 09:41 | MM ---
Reason for Exam: Hx of breast cancer, conservation therapy. Last screening mammogram was performed 12 month(s) ago. Patient History: Menarche at age 13. First Full-Term at age 27. Left ovary removed at age 43. Right ovary removed at age 43. Hysterectomy at age 43. Postmenopausal. Breast cancer, left, age 61. Previous chest radiation therapy at age 61. Previous chemotherapy at age 61. Estrogen, from age 43 until age 59. Progesterone, from age 43 until age 59. Benign Excisional Biopsy on the left side. 1994, Benign Excisional Biopsy on the right side. 11/2018, Benign Excisional Biopsy on the left side. 2016, Lumpectomy on the Left side. 10/26/2016, Malignant Core Biopsy on the left side. 09/21/2016, Malignant Core Biopsy on the left side. Radiation Therapy, left. Chemotherapy. Chemotherapy. Chemotherapy. 2016, Radiation Therapy on the left side. 10/12/2016, discontinued breast core LT on the left side. Paternal cousin had breast cancer, age 53. Paternal cousin had breast cancer, age 68. Paternal cousin had breast cancer, age 65. Paternal aunt had breast cancer, age 60. Sister had breast cancer, age 56. Prior Study Comparison: 10/31/2017 Bilateral Diagnostic Mammogram, [facility]. 11/01/2018 Bilateral Diagnostic Mammogram, [facility]. 01/09/2020 Bilateral Diagnostic Mammogram, [facility]. 01/12/2021 Bilateral Diagnostic Mammogram, [facility]. 07/22/2021 Right Diagnostic Mammogram, [facility]. 01/24/2022 Bilateral MG 3D diag mammo w/cad SERGIO, [facility]. 01/25/2023 Bilateral MG 3D screening mammo w/cad, [facility]. Tissue Density: The breasts are heterogeneously dense, which may obscure small masses. Findings: Analyzed By CAD. The pattern is symmetrical. Significant interval change is evident. Postsurgical lumpectomy changes are within the inner lower left breast. No suspicious groups of microcalcifications, spiculated or lobular masses, architectural distortion or other secondary signs of malignancy are mammographically apparent. Overall Assessment: Benign, BI-RAD 2 Management: Screening Mammogram of both breasts in 1 year. A negative mammogram report should not preclude additional follow up of suspicious palpable abnormalities. Patient should continue monthly self breast exam. A clinical breast exam by your physician is recommended on an annual basis and results should be correlated with mammographic findings. Note on Miguelina scores and lifetime risk: 1. A Miguelina score greater than 3% is considered moderate risk. If this is the case, consider specialist referral to assess eligibility for a risk reducing agent. 2. If overall lifetime risk for the development of breast cancer is 20% or higher, the patient may qualify for future screening with alternating mammogram and breast MRI. Electronically signed and approved by: Abram Castro D.O. Radiologis
== END | disposition home or self-care (01) ==
LOC: RADMAMWWP 08:51
PROVIDERS: ATTEND Surgery
DX: R92.333 Mammographic heterogeneous density, bilateral breasts (principal); Z85.3 Personal history of malignant neoplasm of breast; Z78.0 Asymptomatic menopausal state
CPT/HCPCS: 77062; 77066

== ENCOUNTER → 2024-02-02 | Outpatient (CLI) | payer MEDICARE ==
[2024-02-02 10:25] VITALS: BP 178/75; PULSE 64; RESP 18; TEMP 98
--- NOTE | 2024-02-02 10:41 | P.PN ---
Subjective Progress Note Date: 02/02/24 Principal diagnosis: left breast IDC 02-02-24 stage IIA left breast cancer IDC 2016 Estephania is a 68-year-old white female status post left breast lumpectomy and sentinel node biopsy in October 2016. She subsequently underwent chemotherapy TC followed by radiation therapy which she finished on 05-02-2017.. She is presently on anastrozole. At this time she has no complaints and states she is doing well. The pathologic staging of her tumor was a T2 N0 M0 ER/RI positive, HER-2 negative G3 stage IIA tumor. She underwent a bilateral diagnostic mammogram on 01-29-24 which was Benign BIRAD 2, and personally reviewed Note from Dr. Weston 03-03-22 was reviewed decided to stop Anastrazole in April 2023; she restarted this after discussion with Dr. Weston and will continue at this time she will reconsider this in September of 2024 She has no masses or lumps in her breasts. No nipple discharge or skin changes of concern. She is not complaining of any pain in her breast. The patient did have a bone density performed 06955 this was consistent with osteopenia, another one is ordered in 2024. She is being followed by Dr. Weston for this and takes Prolia, and calcium and vitamin D Family history: brother: bladder cancer sister: brain tumors (not cancer) brother: blood cancer sister: breast cancer father: lung cancer paternal aunt: breast cancer paternal aunt: colon cancer The patient did [place] [address] she had a score between (-2.5) -- (-1) Hormonal History: menarche: 13 , 1 at , 1 miscarriage menopause: 43; complete hysterectomy no cancer BCP: <1 year hormones: 12 years Surgical History: 3 C-sections Right breast lump removed on cancer Cyst removed from ovaries Appendectomy Total abdominal hysterectomy Lumpectomy sentinel node biopsy left breast colonoscopy December 2018/ all [place] bilateral cataract surgery Medical History: none Social History: smoke: none, stopped 30 years ago alcohol: none drugs: none Review of systems: HEENT: Wears glasses, possible cataracts Lungs: Negative Heart: Negative GI: Negative : Negative Musculoskeletal: Arthritis in her hands endocrine: none hematologic: none neuro: none allergies: as noted Integument: small nodule left 5th digit distal, it does not itch or hurt Objective - Vital Signs Vital signs: Vital Signs Temp 98 F 02/02/24 10:23 Pulse 64 02/02/24 10:23 Resp 18 02/02/24 10:23 BP 178/75 02/02/24 10:23 Pulse Ox 96 02/02/24 10:23 FiO2 Intake & Output 02/01/24 02/02/24 02/02/24 18:59 06:59 18:59 Weight 68.946 kg - Constitutional General appearance: Present: cooperative - EENT Eyes: Present: EOMI ENT: Present: hearing grossly normal - Neck Neck: Present: normal ROM - Respiratory Respiratory: bilateral: CTA - Cardiovascular Heart sounds: normal: S1, S2 - Integumentary Integumentary: Present: normal turgor - Musculoskeletal Musculoskeletal: Present: gait normal - Psychiatric Psychiatric: Present: A&O x's 3, appropriate affect, intact judgment & insight - Additional findings Additional findings: Breast examination: Bra: 38C Inspection: Well-healed scar left breast from prior surgery/radiation Palpation: Right breast: Multiple positional exam fibrocystic changes no dominant masses or nodules of concern Right axilla: No adenopathy of concern Left breast: Multi-positional exam fibrocystic changes no evidence of recurrent cancer, no dominant masses or nodules of concern, well-healed scars from prior surgery Left axilla: No adenopathy of concern Assessment and Plan Assessment: Impression: 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
== END ==
LOC: WWCWWP 09:34
PROVIDERS: ATTEND Surgery
DX: Z48.817 Encounter for surgical aftercare following surgery on the skin and subcutaneous tissue (principal); Z80.3 Family history of malignant neoplasm of breast; Z87.891 Personal history of nicotine dependence; Z85.3 Personal history of malignant neoplasm of breast; Z88.8 Allergy status to other drugs, medicaments and biological substances; Z88.5 Allergy status to narcotic agent; Z91.048 Other nonmedicinal substance allergy status

== ENCOUNTER → 2024-09-13 | Outpatient (CLI) | payer MEDICARE ==
--- NOTE | 2024-09-16 17:21 | BD ---
EXAMINATION TYPE: Axial Bone Density DATE OF EXAM: 09/13/2024 CLINICAL HISTORY: 69 years old Female. ICD-10 CODE: M85.9 OSTEOPENIA , Additional History: Height: 64 in Weight: 147 lbs FRAX RISK QUESTIONS: Secondary Osteoporosis: 3. Menopause before 45: total hysterectomy age 43 MEDICATIONS: Osteoporosis Medications: yes Which medication: Prolia How Long: since 2017 EXAM MEASUREMENTS: Bone mineral densitometry was performed using the [employer] System. Bone mineral density as measured about the Lumbar spine is: ----- L1-L4(G/cm2): 1.100 T Score Values are as follows: ----- L1: -0.2 ----- L2: -0.6 ----- L3: -1.0 ----- L4: -1.0 ----- L1-L4: -0.7 Z Score Values are as follows: ----- L1: 1.4 ----- L2: 1.0 ----- L3: 0.6 ----- L4: 0.6 ----- L1-L4: 0.9 Bone mineral density has: Increased 1.5% since study of: 09/12/2022 Bone mineral density about the R hip (g/cm2): 0.931 Bone mineral density about the L hip (g/cm2): 0.899 T Score values are as follows: -----R Neck: -1.5 -----L Neck: -1.5 -----R Total: -0.6 -----L Total: -0.9 Z Score values are as follows: -----R Neck: 0.1 -----L Neck: 0.1 -----R Total: 0.8 -----L Total: 0.5 Bone mineral density has: Decreased -0.8% since study of: 09/12/2022 FRAX%s: The graph provided illustrates a 16.0% chance for a major osteoporotic fx and a 2.2% chance f or the hips probability for fx in 10 years time. IMPRESSION: Osteopenia (T Score between -2.5 and -1). There is slightly increased risk of fracture and the patient may be considered for treatment. Re-Screen 2-5 years. NOTE: T-SCORE=SD OF THE YOUNG ADULT MEAN. [facility], , 09/16/2024 5:19 PM
== END | disposition home or self-care (01) ==
LOC: RADBDWWP 12:29
PROVIDERS: ATTEND Internal Medicine Hematology & Oncology
DX: C50.312 Malignant neoplasm of lower-inner quadrant of left female breast (principal); M85.89 Other specified disorders of bone density and structure, multiple sites
CPT/HCPCS: 77080

== ENCOUNTER → 2025-01-29 | Outpatient (CLI) | payer MEDICARE ==
--- NOTE | 2025-01-29 10:24 | MM ---
Reason for Exam: Hx of breast cancer, conservation therapy. Last screening mammogram was performed 12 month(s) ago. Patient History: Menarche at age 13. First Full-Term at age 27. Left ovary removed at age 43. Right ovary removed at age 43. Hysterectomy at age 43. Postmenopausal. Breast cancer, left, age 61. Previous chest radiation therapy at age 61. Previous chemotherapy at age 61. Estrogen, from age 43 until age 59. Progesterone, from age 43 until age 59. Benign Excisional Biopsy on the left side. 1994, Benign Excisional Biopsy on the right side. 11/2018, Benign Excisional Biopsy on the left side. 2016, Lumpectomy on the Left side. 10/26/2016, Malignant Core Biopsy on the left side. 09/21/2016, Malignant Core Biopsy on the left side. Radiation Therapy, left. Chemotherapy. Chemotherapy. Chemotherapy. 2017, Radiation Therapy on the left side. 10/12/2016, [place] discontinued breast core LT on the left side. Paternal cousin had breast cancer, age 53. Paternal cousin had breast cancer, age 68. Paternal cousin had breast cancer, age 65. Paternal aunt had breast cancer, age 60. Sister had breast cancer, age 56. Tissue Density: The breasts are heterogeneously dense, which may obscure small masses. Findings: Analyzed By CAD. Postoperative changes of left-sided lumpectomy. No recurrent mass or suspicious calcifications in either breast. Overall Assessment: Benign, BI-RAD 2 Management: Diagnostic Mammogram of both breasts in 1 year. . Results were given to the patient verbally at the time of exam. Patient should continue monthly self-breast exams. A clinical breast exam by your physician is recommended on an annual basis. This exam should not preclude additional follow-up of suspicious palpable abnormalities. Note on Miguelina scores and lifetime risk: 1. A Miguelina score greater than 3% is considered moderate risk. If this is the case, consider specialist referral to assess eligibility for a risk reducing agent. 2. If overall lifetime risk for the development of breast cancer is 20% or higher, the patient may qualify for future screening with alternating mammogram and breast MRI. [facility], , 01/29/2025 10:21 AM. Electronically signed and approved by: Je Hu M.D. Radiologis
== END | disposition home or self-care (01) ==
LOC: RADMAMWWP 09:15
PROVIDERS: ATTEND Surgery
DX: R92.333 Mammographic heterogeneous density, bilateral breasts (principal); Z85.3 Personal history of malignant neoplasm of breast; Z78.0 Asymptomatic menopausal state; Z80.3 Family history of malignant neoplasm of breast
CPT/HCPCS: 77062; 77066

== ENCOUNTER → 2025-02-06 | Outpatient (CLI) | payer MEDICARE ==
--- NOTE | 2025-02-06 10:20 | P.PN ---
Subjective Progress Note Date: 02/06/25 Principal diagnosis: left breast IDC 2016, T2 N0 M0 ER/[place] positive, HER-2 negative G3 stage IIA tumor. 02-06-25 Principal diagnosis: stage IIA left breast cancer IDC 2016 Estephania is a 69-year-old white female status post left breast lumpectomy and sentinel node biopsy in October 2016. She subsequently underwent chemotherapy TC followed by radiation therapy which she finished on 05-02-2017.. She is presently on anastrozole. At this time she has no complaints and states she is doing well. The pathologic staging of her tumor was a T2 N0 M0 ER/NY positive, HER-2 negative G3 stage IIA tumor. She underwent a bilateral diagnostic mammogram on 01-29-25 which was Benign BIRAD 2, and personally reviewed She has no masses or lumps in her breasts. No nipple discharge or skin changes of concern. She is not complaining of any pain in her breast. The patient did have a bone density performed 75353 this was consistent with osteopenia. She is being followed by Dr. Weston for this and takes Prolia, and calcium and vitamin D note medical oncology reviewed 09-18-24: will continue on anastrazole; most recent bone density showed slight improvement in the spine with some minimal decrease of bone density in the hips, she is to continue on Prolia Family history: brother: bladder cancer sister: brain tumors (not cancer) brother: blood cancer sister: breast cancer father: lung cancer paternal aunt: breast cancer paternal aunt: colon cancer The patient [place] 147[address] she had a score between (-2.5) -- (-1) Hormonal History: menarche: 13 , 1 at , 1 miscarriage menopause: 43; complete hysterectomy no cancer BCP: <1 year hormones: 12 years Surgical History: 3 C-sections Right breast lump removed on cancer Cyst removed from ovaries Appendectomy Total abdominal hysterectomy Lumpectomy sentinel node biopsy left breast colonoscopy December 2018/ all [place] bilateral cataract surgery Medical History: none Social History: smoke: none, stopped 30 years ago alcohol: none drugs: none Review of systems: HEENT: Wears glasses, possible cataracts Lungs: Negative Heart: Negative GI: Negative : Negative Musculoskeletal: Arthritis in her hands endocrine: none hematologic: none neuro: none allergies: as noted Integument: small nodule left 5th digit distal, it does not itch or hurt Objective - Constitutional General appearance: Present: cooperative - EENT Eyes: Present: EOMI ENT: Present: hearing grossly normal - Neck Neck: Present: normal ROM - Respiratory Respiratory: bilateral: CTA - Cardiovascular Rhythm: regular Heart sounds: normal: S1, S2 - Integumentary Integumentary: Present: normal turgor - Musculoskeletal Musculoskeletal: Present: gait normal - Psychiatric Psychiatric: Present: A&O x's 3, appropriate affect, intact judgment & insight - Additional findings Additional findings: Breast examination: Bra: 38C Inspection: Well-healed scar left breast from prior surgery/radiation Palpation: Right breast: Multi positional exam fibrocystic changes no dominant masses or nodules of concern Right axilla: No adenopathy of concern Left breast: Multi-positional exam fibrocystic changes no evidence of recurrent cancer, no dominant masses or nodules of concern, well-healed scars from prior surgery Left axilla: No adenopathy of concern Assessment and Plan Assessment: Impression: Stage IIA left breast invasive ductal carcinoma no evidence of recurrent cancer Patient continues on anastrozole Plan: Continue anastrozole at this time continue prolia Bilateral mammogram in 1 year; January 2026 Follow-up care if any questions or concerns follow up in One year Additional CC's: Aguila Hunter
[2025-02-06 10:34] VITALS: BP 173/78; PULSE 65; RESP 17; TEMP 98
== END ==
LOC: WWCWWP 09:26
PROVIDERS: ATTEND Surgery
DX: C50.912 Malignant neoplasm of unspecified site of left female breast (principal); Z88.8 Allergy status to other drugs, medicaments and biological substances; Z88.5 Allergy status to narcotic agent; Z91.048 Other nonmedicinal substance allergy status; Z91.018 Allergy to other foods; Z87.891 Personal history of nicotine dependence